=== PATIENT | female | born 1980 | race Caucasian/White ===

== ENCOUNTER 2023-02-28 15:53 | Outpatient (OUT) | payer OTHER, SELFPAY ==
[2023-02-28 16:18] LABS: Basophils Percent Auto 0.6 % (0.2-2.0); Eosinophils Absolute Auto 0.1 10^3/uL (0.0-0.7); Hematocrit 41.6 % (36.0-48.0); Hemoglobin 13.7 g/dL (12.0-16.0); Immature Granulocytes Abs Auto 0.01 10^3/uL (0.00-0.03); Immature Granulocytes Pct Auto 0.1 % (0.0-0.5); Lymphocytes Absolute Auto 1.7 10^3/uL (1.2-3.8); Lymphocytes Percent Auto 24.8 % (20.5-60.0); Mean Corpuscular HGB Conc 32.9 g/dL (29.9-35.2); Mean Corpuscular Hemoglobin 34.5 pg (26.7-34.0); Mean Corpuscular Volume 104.8 fL (81.0-99.0); Mean Platelet Volume 9.4 fL (9.5-13.5); Monocytes Absolute Auto 0.5 10^3/uL (0.3-0.8); Monocytes Percent Auto 6.9 % (1.7-12.0); Neutrophils Absolute Auto 4.5 10^3/uL (1.4-6.5); Neutrophils Percent Auto 66.6 % (43.0-75.0); Platelet Count 288 10^3/uL (150-450); Red Blood Count 3.97 10^6/uL (4.20-5.40); Red Cell Distribution Width 12.9 % (11.0-15.0); White Blood Count 6.8 10^3/uL (4.0-11.0)
[2023-02-28 16:42] LABS: INR 1.01; Partial Thromboplastin Time 25.5 sec (22.3-36.2); Prothrombin Time 10.7 sec (9.0-11.6)
[2023-02-28 17:10] LABS: Estimated Average Glucose 85 mg/dL; Glycohemoglobin A1C 4.6 % (4.5-6.2)
[2023-02-28 17:17] LABS: Free T4 0.96 ng/dL (0.76-1.46)
[2023-02-28 17:18] LABS: HCG Quantitative <1 mIU/mL; Thyroid Stimulating Hormone 1.753 uIU/mL (0.358-3.740)
== END 2023-02-28 15:54 | disposition home or self-care (01) ==
PROVIDERS: Visit Provider Obstetrics & Gynecology
DX: N92.6 Irregular menstruation, unspecified (principal); R10.2 Pelvic and perineal pain
CPT/HCPCS: 36415; 83036; 84439; 84443; 84702; 85025; 85610; 85730

== ENCOUNTER 2023-03-19 14:26 | Outpatient (OUT) | payer OTHER, SELFPAY ==
--- NOTE | 2023-03-19 14:28 | US_ITS ---
The [address] [address] Patient Name: LUCIE BLUM MRN: [id number] date: 1980 Sex: F Assigned Patient Location: US Current Patient Location: Accession/Order Number: [id number] Exam Date: 03/19/2023 14:28 Report Date: 03/20/2023 00:54 At the request of: DEANDRE HOYT Procedure: US pelvis w/ transvaginal EXAMINATION: US pelvis w/ transvaginal HISTORY: IRREGULAR PERIODS, PELVIC PAIN COMPARISON: No relevant comparison available. TECHNIQUE: Transabdominal and/or transvaginal sonographic examination was performed as indicated by examination type. FINDINGS: UTERUS: Normal size and appearance. Uterus size: 9.7 x 4.2 x 5.6 cm ENDOMETRIUM: Thickened, but homogeneous. Endometrial thickness: 16 mm RIGHT OVARY: Normal size and appearance. Blood flow present within ovary on color Doppler. Ovary size: 1.; 0.6 x 1.9 cm LEFT OVARY: Not seen. CUL-DE-SAC: Unremarkable. No significant free fluid. BLADDER: Unremarkable. OTHER: None. US/US pelvis w/ transvaginal IMPRESSION: 1. Abnormal thickening of the endometrium without appreciable mass; endometrial hyperplasia? 2. Left ovary was not seen. No suspicious left adnexal findings. Electronically authenticated by: JORGE TAYLOR Date: 03/20/2023 00:54
== END 2023-03-19 14:27 | disposition home or self-care (01) ==
LOC: US 14:26
PROVIDERS: Visit Provider Obstetrics & Gynecology
DX: N92.6 Irregular menstruation, unspecified (principal); R10.2 Pelvic and perineal pain
CPT/HCPCS: 76830; 76856

== ENCOUNTER 2023-04-01 14:12 | Outpatient (REF) | payer OTHER, SELFPAY ==
--- OUTSIDE RECORDS SUMMARY | 2023-05-13 13:51 | XMS_ITS | CCD ---
Author Name Unknown Address [address] [place] [address] Organization [facility] Care Team Providers Care [employer] Set Up Operator Name Role Phone DR RONNIE VOSS Primary [...] POTENTIAL PATHOGENS SEEN. Normal [facility] Comment on above: Performed By: #### U RCX #### [facility] [address] [address] [address] Dg Sawant ER URINE PROFILEon 2 Bilirubin Ql (U) Negative Normal NEGATIVE [facility] Comment on above: Performed By: #### E RUR, PREGU, UMICRO #### [facility] [address] [place], [place] [address] Dr. Dg Sawant Clarity (U) CLEAR Normal CLEAR [facility] Comment on above: Performed By: #### E RUR, PREGU, UMICRO #### [facility] [address] [address] [address] Dg Sawant Color (U) LT. YELLOW Normal YELLOW [facility] Comment on above: Performed By: #### E RUR, PREGU, UMICRO #### [facility] [address] [address] [address] Dg MCMILLAN A micrscopic examination will be performed if indicated. Normal [facility] Comment on above: Performed By: #### E RUR, PREGU, UMICRO #### [facility] [address] [address] [address] Dg Sawant Glucose Ql (U) Negative Normal NEGATIVE [facility] Comment on above: Performed By: #### E RUR, PREGU, UMICRO #### [facility] [address] [address] [address] Dg Sawant Hemoglobin Ql (U) Negative Normal NEGATIVE [facility] Comment on above: Performed By: #### E RUR, PREGU, UMICRO #### [facility] [address] [address] [address] Dg Sawant Ketones Ql (U) Negative Normal NEGATIVE [facility] Comment on above: Performed By: #### E RUR, PREGU, UMICRO #### [facility] [address] [address] [address] Dg Sawant LEUKOCYTES TRACE Abnormal NEGATIVE [facility] Comment on above: Performed By: #### E RUR, PREGU, UMICRO #### [facility] [address] [address] [address] Dg Sawant Nitrite Ql (U) Negative Normal NEGATIVE [facility] Comment on above: Performed By: #### E RUR, PREGU, UMICRO #### [facility] [address] [address] [address] Dg Sawant pH (U) 6.0 [pH] Normal 5-9 [facility] Comment on above: Performed By: #### E RUR, PREGU, UMICRO #### [facility] [address] [address] [address] Dg Sawant SPEC GRAVITY 1.015 Normal 1.005-<=1.025 [facility] Comment on above: Performed By: #### E RUR, PREGU, UMICRO #### [facility] [address] [place] [address] Dr. Dg Sawant UA PROTEIN Negative Normal NEGATIVE/ TRACE [facility] Comment on above: Performed By: #### E RUR, PREGU, UMICRO #### [facility] [address] [place] [address] Dr. Dg Sawant UR MICRO IND INDICATED Normal [facility] Comment on above: Performed By: #### E RUR, PREGU, UMICRO #### [facility] [address] [place] [address] Dr. Dg Sawant Urobilinogen Qn (U) 0.2 {Susana'U}/dL Normal 0.2 - 1. 0 [facility] Comment on above: Performed By: #### E RUR, PREGU, UMICRO #### [facility] [address] [place] [address] Dr. Dg Sawant URon 09-11-2021 , QUAL Negative Normal NEGATIVE [facility] Comment on above: Performed By: #### E RUR, PREGU, UMICRO #### [facility] [address] [place] [address] Dr. Dg Sawant URINE MICROSCOPIC ONLYon BACTERIA TRACE Abnormal NONE SEEN [facility] Comment on above: Performed By: #### E RUR, PREGU, UMICRO #### [facility] [address] [place] [address] Dr. Dg Sawant Bacteria identified Cx Nom (U) INDICATED Normal [facility] Comment on above: Performed By: #### E RUR, PREGU, UMICRO #### [facility] [address] [place] [address] Dr. Dg Sawant CAST NONE SEEN Normal NONE SEEN [facility] Comment on above: Performed By: #### E RUR, PREGU, UMICRO #### [facility] [address] [address] [address] Dg Sawant Crystals LM Nom (Urine sed) NONE SEEN Normal NONE SEEN [facility] Comment on above: Performed By: #### E RUR, PREGU, UMICRO #### [facility] [address] [address] [address] Dg Sawant Epithelial cells LM Ql (Urine sed) RARE Normal NONE SEEN /RARE [facility] Comment on above: Performed By: #### E RUR, PREGU, UMICRO #### [facility] [address] [address] [address] Dg Sawant MUCOUS SMALL Abnormal NONE SEEN [facility] Comment on above: Performed By: #### E RUR, PREGU, UMICRO #### [facility] [address] [address] [address] Dg Sawant RBC 0-2 Normal 0-2 [facility] Comment on above: Performed By: #### E RUR, PREGU, UMICRO #### [facility] [address] [address] [address] Dg Sawant WBC 0-2 Abnormal NONE SEEN [facility] Comment on above: Performed By: #### E RUR, PREGU, UMICRO #### [facility] [address] [address] [address] Dg Sawant Encounters Encounter Date Encounter Type Care Provider Facility Start: 09-11-2021 End: 09-11-[address] DOCTOR VOSS Facility: Payers Date Payer Category Payer Unknown [id number] 1960 Unknown [id number] Summary Purpose Family History No Family History Records Found Advance Directives No Advanced Directives Records Found Additional Source Comments INFORMATION SOURCE (unrecogn ized section and content) DATE CREATED AUTHOR 09/13/2021 [facility] FOR RECORDS PERTAINING TO PATIENTS WHO [...] BE BASED ON THE PRIMARY CLINICAL RECORDS. [facility] [email or web address] [facility]. provides no warranty or guarantee of the accuracy or completeness of information in this document.
== END 2023-04-01 14:13 ==
LOC: LAB 14:12
PROVIDERS: Visit Provider Obstetrics & Gynecology
DX: N92.6 Irregular menstruation, unspecified (principal)
CPT/HCPCS: 88305

== ENCOUNTER 2023-04-11 10:01 | Outpatient (OUT) | payer OTHER, SELFPAY ==
--- OUTSIDE RECORDS SUMMARY | 2023-04-11 10:05 | XMS_ITS | CCD ---
Author Name Unknown Address [address] [place] [address] Organization [facility] Care Team Providers Care College Sports Assistant Name Role Phone DR RONNIE VOSS Primary Care Unavailable WAI WHEELER Attending Unavailable WAI WHEELER Consulting Unavailable WAI WHEELER Admitting Unavailable Problems Active Problems Problem Classification Problem Date Documented Da te Episodic/Chronic Genitourinary symptoms and ill-defined conditions (1 source) Personal history of urinary (tract) infections; Translations: [PERS HX URINARY TRACT INFECTIONS] Onset: 09-13-2021 Episodic Spondylosis; intervertebral disc disorders; other back problems (1 source) Muscle spasm of back; Translations: [MUSCLE SPASM OF BACK] Onset: 09-13-2021 Episodic Unclassified (3 sources) LOW BACK PAIN, UNSPECIFIED; Translations: [LOW BACK PAIN, UNSPECIFIED] Onset: 09-13-2021 Past or Other Problems Problem Classification Problem Date Documented Da te Episodic/Chronic Unclassified (1 source) LOW BACK PAIN, UNSPECIFIED; Translations: [LOW BACK PAIN, UNSPECIFIED] Onset: 09-11-2021 Results Test Name Value Interpretation Reference Range Facil ity CULTURE URINEon 09-11-2021 CULTURE URINE Culture Observations: LIGHT GROWTH OF MIXED GENITAL JACQUELINE. NO POTENTIAL PATHOGENS SEEN. Normal The [facility] Comment on above: Performed By: #### U RCX #### [facility] [address] [address] [address] Dg Sawant ER URINE PROFILEon 2 Bilirubin Ql (U) Negative Normal NEGATIVE The [facility] Comment on above: Performed By: #### E RUR, PREGU, UMICRO #### [facility] [address] [place], [place] [address] Dr. Dg Sawant Clarity (U) CLEAR Normal CLEAR The [facility] Comment on above: Performed By: #### E RUR, PREGU, UMICRO #### [facility] [address] [address] [address] Dg Sawant Color (U) LT. YELLOW Normal YELLOW The [facility] Comment on above: Performed By: #### E RUR, PREGU, UMICRO #### [facility] [address] [address] [address] Dg MCMILLAN A micrscopic examination will be performed if indicated. Normal The [facility] Comment on above: Performed By: #### E RUR, PREGU, UMICRO #### [facility] [address] [address] [address] Dg Sawant Glucose Ql (U) Negative Normal NEGATIVE The [facility] Comment on above: Performed By: #### E RUR, PREGU, UMICRO #### [facility] [address] [address] [address] Dg Sawant Hemoglobin Ql (U) Negative Normal NEGATIVE [facility] Comment on above: Performed By: #### E RUR, PREGU, UMICRO #### [facility] [address] [address] [address] Dg Sawant Ketones Ql (U) Negative Normal NEGATIVE The [facility] Comment on above: Performed By: #### E RUR, PREGU, UMICRO #### [facility] [address] [address] [address] Dg Sawant LEUKOCYTES TRACE Abnormal NEGATIVE The [facility] Comment on above: Performed By: #### E RUR, PREGU, UMICRO #### [facility] [address] [address] [address] Dg Sawant Nitrite Ql (U) Negative Normal NEGATIVE [facility] Comment on above: Performed By: #### E RUR, PREGU, UMICRO #### [facility] [address] [address] [address] Dg Sawant pH (U) 6.0 [pH] Normal 5-9 The [facility] Comment on above: Performed By: #### E RUR, PREGU, UMICRO #### [facility] [address] [address] [address] Dg Sawant SPEC GRAVITY 1.015 Normal 1.005-<=1.025 The [facility] Comment on above: Performed By: #### E RUR, PREGU, UMICRO #### [facility] [address] [place] [address] Dr. Dg Sawant UA PROTEIN Negative Normal NEGATIVE/ TRACE The [facility] Comment on above: Performed By: #### E RUR, PREGU, UMICRO #### [facility] [address] [place] [address] Dr. Dg Sawant UR MICRO IND INDICATED Normal The [facility] Comment on above: Performed By: #### E RUR, PREGU, UMICRO #### [facility] [address] [place] [address] Dr. Dg Sawant Urobilinogen Qn (U) 0.2 {Susana'U}/dL Normal 0.2 - 1. 0 The [facility] Comment on above: Performed By: #### E RUR, PREGU, UMICRO #### [facility] [address] [place] [address] Dr. Dg Sawant URon 09-11-2021 , QUAL Negative Normal NEGATIVE The [facility] Comment on above: Performed By: #### E RUR, PREGU, UMICRO #### [facility] [address] [place] [address] Dr. Dg Sawant URINE MICROSCOPIC ONLYon BACTERIA TRACE Abnormal NONE SEEN The [facility] Comment on above: Performed By: #### E RUR, PREGU, UMICRO #### [facility] [address] [place] [address] Dr. Dg Sawant Bacteria identified Cx Nom (U) INDICATED Normal The [facility] Comment on above: Performed By: #### E RUR, PREGU, UMICRO #### [facility] [address] [place] [address] Dr. Dg Sawant CAST NONE SEEN Normal NONE SEEN The [facility] Comment on above: Performed By: #### E RUR, PREGU, UMICRO #### [facility] [address] [address] [address] Dg Sawant Crystals LM Nom (Urine sed) NONE SEEN Normal NONE SEEN The [facility] Comment on above: Performed By: #### E RUR, PREGU, UMICRO #### [facility] [address] [address] [address] Dg Sawant Epithelial cells LM Ql (Urine sed) RARE Normal NONE SEEN /RARE The [facility] Comment on above: Performed By: #### E RUR, PREGU, UMICRO #### [facility] [address] [address] [address] Dg Sawant MUCOUS SMALL Abnormal NONE SEEN The [facility] Comment on above: Performed By: #### E RUR, PREGU, UMICRO #### [facility] [address] [address] [address] Dg Sawant RBC 0-2 Normal 0-2 The [facility] Comment on above: Performed By: #### E RUR, PREGU, UMICRO #### [facility] [address] [address] [address] Dg Sawant WBC 0-2 Abnormal NONE SEEN The [facility] Comment on above: Performed By: #### E RUR, PREGU, UMICRO #### [facility] [address] [address] [address] Dg Sawant Encounters Encounter Date Encounter Type Care Provider Facility Start: 09-11-2021 End: 09-11-[address] DOCTOR VOSS Facility: Payers Date Payer Category Payer Unknown [id number] 1960 Unknown [id number] Summary Purpose Family History No Family History Records Found Advance Directives No Advanced Directives Records Found Additional Source Comments INFORMATION SOURCE (unrecogn ized section and content) DATE CREATED AUTHOR 09/13/2021 The [facility] FOR RECORDS PERTAINING TO PATIENTS WHO ARE OR HAVE BEEN ENROLLED IN A CHEMICAL DEPENDENCY/SUBSTANCEABUSE PROGRAM, SOME INFORMATION MAY BE OMITTED. This clinical summary was aggregated from multiple sources. Caution should be exercised in using it in the provision of clinical care. This summary normalizes information from multiple sources, and as a consequence, information in this document may materially change the coding, format and clinical context of patient data. In addition, data may be omitted in some cases. CLINICAL DECISIONS SHOULD BE BASED ON THE PRIMARY CLINICAL RECORDS. [facility] [employer] [facility]. provides no warranty or guarantee of the accuracy or completeness of information in this document.
--- NOTE | 2023-04-11 10:26 | ECG_ITS ---
The [facility] Test Date: 2023-04-11 Pat Name: LUCIE BLUM Department: Room: - Gender: Female Cancer Program Director: : 1980 Requested By: DEANDRE HOYT Order Number: [id number] Reading MD: KAMI COLE Measurements Intervals [place] Rate: 69 P: 25 [place]: 118 QRS: 41 QRSD: 90 T: 32 QT: 390 QTc: 419 Interpretive Statements SINUS RHYTHM WITH SHORT [place] INTERVAL No previous ECG available for comparison Electronically Signed On 04-14-2023 17:22:36 EST by KAMI COLE
--- NOTE | 2023-04-11 10:35 | P.GSHP_ITS ---
History of Present Illness History of Present Illness Chief complaint: desires sterilization, menorrhagia Narrative: Patient presents for preadmission testing. Please see HPI from Dr. Lyons dated 04/01/2023. Review of Systems ROS Narrative Please see ROS from Dr. Lyons dated 04/01/2023. [facility] Medical History (Updated 04/11/23 @ 10:20 by Ayleen Saldana NP) Arthritis ?M19.90 - Unspecified osteoarthritis, unspecified site (ICD-10) Panic attacks ?F41.0 - Panic disorder [episodic paroxysmal anxiety] (ICD-10) Depression ?F32.A - Depression, unspecified (ICD-10) Anxiety ?F41.9 - Anxiety disorder, unspecified (ICD-10) COVID-19 ?U07.1 - COVID-19 (ICD-10) Migraine ?G43.909 - Migraine, unspecified, not intractable, without status migrainosus (ICD-10) Vertigo ?R42 - Dizziness and giddiness (ICD-10) Kidney stones ?N20.0 - Calculus of kidney (ICD-10) Request for sterilization ?Z30.2 - Encounter for sterilization (ICD-10) Abnormal uterine bleeding ?N93.9 - Abnormal uterine and vaginal bleeding, unspecified (ICD-10) Pelvic pain ?R10.2 - Pelvic and perineal pain (ICD-10) Menorrhagia ?N92.0 - Excessive and frequent menstruation with regular cycle (ICD-10) Heartburn ?R12 - Heartburn (ICD-10) Angina at rest ?I20.89 - Other forms of angina pectoris (ICD-10) Surgical History (Updated 04/11/23 @ 10:20 by Ayleen Saldana NP) History of wisdom tooth extraction ?K08.409 - Partial loss of teeth, unspecified cause, unspecified class (ICD- 10) History of tubal ligation ?Z98.51 - Tubal ligation status (ICD-10) Family History (Updated 04/11/23 @ 10:20 by Ayleen Saldana NP) Other Family history of diabetes mellitus Family history of heart disease Family history of hypertension Family history of stroke Social History (Updated 04/11/23 @ 10:16 by Ayleen Saldana NP) Within the past year, how often did you have a drink containing alcohol: 4 or more times a week Within the past year, how many standard drinks containing alcohol did you have on a typical day: 1 or 2 Total score: 0 Score interpretation: A score less than 3 is consistent with normal alcohol consumption. 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 Highest level of school completed/degree received: Bachelor's degree Meds Home Medications and Allergies Home Medications Medication Instructions Recorded Confirmed Type meclizine 25 mg tablet 25 mg PO TID PRN dizziness 04/11/23 04/11/23 History nitroglycerin 0.4 mg sublingual 0.4 mg buccal Q5M PRN chest pain 04/11/23 04/11/23 History tablet Allergies Allergy/AdvReac Type Severity Reaction Status Date / Time codeine Allergy Vomiting Verified 04/11/23 10:14 Exam Narrative Exam Narrative: Constitutional: Awake, alert, comfortable, well-appearing, nontoxic, interactive, vital signs as charted Head: Normocephalic, atraumatic Neck: Supple, normal appearance, normal range of motion, no meningeal signs, no lymphadenopathy Respiratory: No respiratory distress, breath sounds clear Cardiovascular: Regular rate and rhythm, strong and regular heart tones Abdomen: Nontender, normal bowel sounds, soft, no CVA tenderness Musculoskeletal: Normal gait, no swelling or edema Skin: No rashes or induration, no lesions, only visible skin inspected Neuro: No neurological deficits, normal sensation Psychiatric: Oriented ?3, normal affect Assessment and Plan Assessment and Plan (1) Request for sterilization: (2) Abnormal uterine bleeding: (3) Pelvic pain: (4) Menorrhagia: Plan Robot assisted bilateral laparoscopic salpingectomy, endometrial ablation Vanessa scheduled with Dr. Lyons 04/24/2023.
== END 2023-04-11 10:02 | disposition home or self-care (01) ==
LOC: PST 10:02
PROVIDERS: Visit Provider Obstetrics & Gynecology
DX: Z01.812 Encounter for preprocedural laboratory examination (principal); Z01.818 Encounter for other preprocedural examination; N92.0 Excessive and frequent menstruation with regular cycle; N93.9 Abnormal uterine and vaginal bleeding, unspecified; R10.2 Pelvic and perineal pain
CPT/HCPCS: 93005; G0463

== ENCOUNTER 2023-04-24 06:05 | Day surgery (SDC) | payer OTHER, SELFPAY ==
[2023-04-11 10:31] VITALS: BP 117/83; PULSE 84; RESP 14; TEMP 36.3; O2SAT 97; BMI 23.1
[2023-04-24] VITALS (10 sets, daily range): BP systolic 105–122; BP diastolic 56–75; PULSE 63–78; RESP 12–21; TEMP 36.1–36.2; O2SAT 96–100; BMI 23.0
--- OUTSIDE RECORDS SUMMARY | 2023-04-24 06:09 | XMS_ITS | CCD ---
Author Name Unknown Address [address] [place] [address] Organization [facility] Care Team Providers Care Painter Barrel Name Role Phone DR RONNIE VOSS Primary [...] JACQUELINE. NO POTENTIAL PATHOGENS SEEN. Normal The [facility] Comment on above: Performed By: #### U RCX #### [facility] [address] [address] [address] Dg Sawant ER URINE PROFILEon 2 Bilirubin Ql (U) Negative Normal NEGATIVE The [facility] Comment on above: Performed By: #### E RUR, PREGU, UMICRO #### [facility] [address] [place], [place] [address] Dr. Dg Sawant Clarity (U) CLEAR Normal CLEAR [facility] Comment on above: Performed By: #### E RUR, PREGU, UMICRO #### [facility] [address] [address] [address] Dg Sawant Color (U) LT. YELLOW Normal YELLOW The [facility] Comment on above: Performed By: #### E RUR, PREGU, UMICRO #### [facility] [address] [address] [address] Dg MCMILLAN A micrscopic examination will be performed if indicated. Normal The [facility] Comment on above: Performed By: #### E RUR, PREGU, UMICRO #### [facility] [address] [address] [address] Dg Sawant Glucose Ql (U) Negative Normal NEGATIVE The [facility] Comment on above: Performed By: #### E RUR, PREGU, UMICRO #### [facility] [address] [address] [address] Dg Sawant Hemoglobin Ql (U) Negative Normal NEGATIVE [facility] Comment on above: Performed By: #### E RUR, PREGU, UMICRO #### [facility] [address] [address] [address] Dg Sawant Ketones Ql (U) Negative Normal NEGATIVE The [facility] Comment on above: Performed By: #### E RUR, PREGU, UMICRO #### [facility] [address] [address] [address] Dg Sawant LEUKOCYTES TRACE Abnormal NEGATIVE The [facility] Comment on above: Performed By: #### E RUR, PREGU, UMICRO #### [facility] [address] [address] [address] Dg Sawant Nitrite Ql (U) Negative Normal NEGATIVE [facility] Comment on above: Performed By: #### E RUR, PREGU, UMICRO #### [facility] [address] [address] [address] Dg Sawant pH (U) 6.0 [pH] Normal 5-9 [facility] Comment on above: Performed By: #### E RUR, PREGU, UMICRO #### [facility] [address] [address] [address] Dg Sawant SPEC GRAVITY 1.015 Normal 1.005-<=1.025 The [facility] Comment on above: Performed By: #### E RUR, PREGU, UMICRO #### [facility] [address] [place] [address] Dr. Dg Sawant UA PROTEIN Negative Normal NEGATIVE/ TRACE The [facility] Comment on above: Performed By: #### E RUR, PREGU, UMICRO #### [facility] [address] [place] [address] Dr. Dg Sawant UR MICRO IND INDICATED Normal [facility] Comment on above: Performed By: #### E RUR, PREGU, UMICRO #### [facility] [address] [place] [address] Dr. Dg Sawant Urobilinogen Qn (U) 0.2 {Susana'U}/dL Normal 0.2 - 1. 0 The [facility] Comment on above: Performed By: #### E RUR, PREGU, UMICRO #### [facility] [address] [place] [address] Dr. Dg Sawant URon 09-11-2021 , QUAL Negative Normal NEGATIVE The [facility] Comment on above: Performed By: #### E RUR, PREGU, UMICRO #### [facility] [address] [place] [address] Dr. Dg Sawant URINE MICROSCOPIC ONLYon BACTERIA TRACE Abnormal NONE SEEN The [facility] Comment on above: Performed By: #### E RUR, PREGU, UMICRO #### [facility] [address] [place] [address] Dr. Dg Sawant Bacteria identified Cx Nom (U) INDICATED Normal The [facility] Comment on above: Performed By: #### E RUR, PREGU, UMICRO #### [facility] [address] [place] [address] Dr. Dg Sawant CAST NONE SEEN Normal NONE SEEN The [facility] Comment on above: Performed By: #### E RUR, PREGU, UMICRO #### [facility] [address] [address] [address] Dg Sawant Crystals LM Nom (Urine sed) NONE SEEN Normal NONE SEEN The [facility] Comment on above: Performed By: #### E RUR, PREGU, UMICRO #### [facility] [address] [address] [address] Dg Sawant Epithelial cells LM Ql (Urine sed) RARE Normal NONE SEEN /RARE The [facility] Comment on above: Performed By: #### E RUR, PREGU, UMICRO #### [facility] [address] [address] [address] Dg Sawant MUCOUS SMALL Abnormal NONE SEEN The [facility] Comment on above: Performed By: #### E RUR, PREGU, UMICRO #### [facility] [address] [address] [address] Dg Sawant RBC 0-2 Normal 0-2 The [facility] Comment on above: Performed By: #### E RUR, PREGU, UMICRO #### [facility] [address] [address] [address] Dg Sawant WBC 0-2 Abnormal NONE SEEN The [facility] Comment on above: Performed By: #### E RUR, PREGU, UMICRO #### [facility] [address] [address] [address] Dg Sawant Encounters Encounter Date Encounter Type Care Provider Facility Start: 09-11-2021 End: 09-11-[address] DOCTOR VOSS Facility: Payers Date Payer Category Payer Unknown [id number] 1960 Unknown [id number] Summary Purpose Family History No Family History Records Found Advance Directives No Advanced Directives Records Found Additional Source Comments INFORMATION SOURCE (unrecogn ized section and content) DATE CREATED AUTHOR 09/13/2021 The [facility] FOR RECORDS PERTAINING TO PATIENTS WHO ARE [...] BE BASED ON THE PRIMARY CLINICAL RECORDS. [facility] [employer] [facility]. provides no warranty or guarantee of the accuracy or completeness of information in this document.
[2023-04-24 06:17] LABS: Basophils Absolute Auto 0.1 10^3/uL (0.0-0.1); Basophils Percent Auto 0.7 % (0.2-2.0); Eosinophils Absolute Auto 0.1 10^3/uL (0.0-0.7); Eosinophils Percent Auto 0.9 % (0.9-7.0); Hematocrit 43.6 % (36.0-48.0); Hemoglobin 14.6 g/dL (12.0-16.0); Immature Granulocytes Abs Auto 0.03 10^3/uL (0.00-0.03); Immature Granulocytes Pct Auto 0.4 % (0.0-0.5); Lymphocytes Absolute Auto 2.2 10^3/uL (1.2-3.8); Lymphocytes Percent Auto 31.2 % (20.5-60.0); Mean Corpuscular HGB Conc 33.5 g/dL (29.9-35.2); Mean Corpuscular Hemoglobin 34.5 pg (26.7-34.0); Mean Corpuscular Volume 103.1 fL (81.0-99.0); Mean Platelet Volume 9.6 fL (9.5-13.5); Monocytes Absolute Auto 0.6 10^3/uL (0.3-0.8); Monocytes Percent Auto 8.3 % (1.7-12.0); Neutrophils Absolute Auto 4.1 10^3/uL (1.4-6.5); Neutrophils Percent Auto 58.5 % (43.0-75.0); Platelet Count 293 10^3/uL (150-450); Red Blood Count 4.23 10^6/uL (4.20-5.40); Red Cell Distribution Width 12.9 % (11.0-15.0)
[2023-04-24 06:41] LABS: HCG Quantitative <1 mIU/mL
[2023-04-24] MEDS: LACTATED RINGER'S SOLUTION 1,000 ML 50 ML IV (06:42)
--- NOTE | 2023-04-24 08:48 | P.ON_ITS ---
Brief Operative Note Date of procedure: 04/24/23 Pre-op diagnosis: aub, pelvic pain Post-op diagnosis: same as pre-op Procedure: Brief Operative Note Date of procedure: Pre-op diagnosis: Post-op diagnosis: Procedure: NAME OF PROCEDURE: robotic assisted bilateral laparoscopic salpingectomy, mineva endometrial ablation with hysteroscopy, rt ovarian cystectomy The patient was taken back to the OR where she was prepped and draped in the normal sterile fashion after being placed in the dorsal lithotomy position, after being placed under general anesthesia without difficulty.? A weighted speculum was placed into the vagina. The anterior lip was grasped with a single tooth tenaculum. The patient was then sounded to approximated 8cm. The patient?s cervix was gently dilated using hegardilators. The hysteroscope was passed t hrough the cervix into the uterus where both ostia were seen. No gross evidence of polyps, fibroids or malignancy. The cervical length was noted to be 4 cm. The total cavity length is 4cm.? The Vanessa ablation apparatus was set to approximately 4cm in length. This was placed through the cervix and into the uterus. After the seal was tested, at that time the total ablation of 120 seconds was performed with the Vanessa withoutdifficulty. All instruments were removed from the vagina. Excellent hemostasis noted.? A wet sponge stick was placed into the patient's vagina. Attention was then turned to the patient's abdomen, where a scalpel was used to make a small infraumbilical incision. The S retractors were then used to dissect the underlying layers until the fascia could be seen. The fascia was then grasped with Ann Marie clamps and tented up. A knife was then used to make a small incision to the fascia. The muscle was identified, at that time two sutures of #0 Vicryl on a GI needle was then used and placed through the fascia. the peritoneum was then identified and entered bluntly. The 10-4 Eben was then placed into the patient's abdomen. This was confirmed with direct visualization of the bowel, using the laparoscope. The patient's abdomen was then insufflated using approximately 4 liters of CO2 gas. Survey of the patient's abdomen demonstrated ovaries were normal in appearance as well as both tubes and uterus. A second and third rt and lt lateral robotic ports which were 8 mm in size, was then placed after the skin incision was made under direct visualization . the robotic arms were engaged. The patient's tube on the patient's right side was identified and tented up using a grasper, the ligasure apparatus was then used to come across the mesosalpingx from the fimbriated end to the insertion site at the uterus, the tube was then amputated and removed in its entirety. This was done on the contralateral side. The tubes were the removed from the patients abdomen.please note rt ovarian cystectomy was performed using the vessel sealer, Excellent hemostasis was noted. The lateral ports were then moved under direct visualization with excellent hemostasis. All instruments were removed from the patient's abdomen. The fascia was closed using the #0 Vicryl on GI needle. The skin was closed using 4-0 Vicryl subcuticularly. All instruments were removed from the patient's vagina as well. The patient was taken out of the dorsal lithotomy position and placed in the supine position and taken to recovery in stable condition. Sponge, lap and needle counts were correct x2. Anesthesia: JOSE Surgeon: Jose Cruz Lyons School Business Administrator: Nichol Naqvi Estimated blood loss (mL): 20 Pathology: other (tubes and rt cyst wall) Condition: stable Disposition: PACU Urinary Catheter Management Urinary Catheter Management Urethral: Cath placed during this visit: no
[2023-04-24] MEDS: HYDROCODONE/ACET 5-325 MG TABLET 1 TAB PO (09:17)
[2023-04-24] MEDS: LACTATED RINGER'S SOLUTION 1,000 ML 150 ML IV (09:50)
== END 2023-04-24 10:41 | disposition home or self-care (01) ==
PROVIDERS: Anesthesiology; Visit Provider Obstetrics & Gynecology
PROC: (CPT 840; principal; 2023-04-24 07:30)
PROC: (CPT 840; 2023-04-24 07:30)
DX: Z30.2 Encounter for sterilization (principal); N92.0 Excessive and frequent menstruation with regular cycle; N93.9 Abnormal uterine and vaginal bleeding, unspecified; R10.2 Pelvic and perineal pain; N83.11 Corpus luteum cyst of right ovary; M19.90 Unspecified osteoarthritis, unspecified site; F41.0 Panic disorder [episodic paroxysmal anxiety]; F32.A Depression, unspecified; F41.9 Anxiety disorder, unspecified; Z86.16 Personal history of COVID-19; Z87.442 Personal history of urinary calculi; R12 Heartburn; I20.89 Other forms of angina pectoris; Z87.891 Personal history of nicotine dependence; K21.9 Gastro-esophageal reflux disease without esophagitis
CPT/HCPCS: 58563; 58661; 58662; 36415; 84702; 85025; 88302; 88305; J0131; J0330; J1100; J1885; J2405; J2704; J2710; J3010

== ENCOUNTER 2023-11-20 09:44 | Outpatient (OUT) | payer OTHER, SELFPAY ==
--- OUTSIDE RECORDS SUMMARY | 2023-11-20 09:48 | XMS_ITS | CCD ---
Author Organization [facility] ion Partnership [facility] Care Team Providers Care Physical Medicine Physician Name Role Phone DR RONNIE VOSS Primary Care Unavailable WAI WHEELER Attending Unavailable WAI WHEELER Consulting Unavailable WAI WHEELER Admitting Unavailable SERVICES, [facility] Primary Care Unava JUSTIN Croft Attending Unavailable DEANDRE HOYT Attending Unavailable DEANDRE HOYT Attending Unavailable DEANDRE HOYT Attending Unavailable Allergies Allergy Classification Reported Allergen(s) Allergy Type Date of Onset Reaction(s) Facility (1 source) Acetaminophen / Codeine; Translations: [ACETAMINOPHEN-COD EINE] Drug Allergy 06-13-2021 [facility] Problems Active Problems Problem Classification Problem Date Documented Date Episodic/Chronic Genitourinary symptoms and ill-defined conditions (1 source) Personal history of urinary (tract) infections; Translations: [PERS HX URINARY TRACT INFECTIONS] Onset: 09-13-2021 Episodic Headache; including migraine (1 source) Headache; including migraine Onset: 05-20-2023 Other upper respiratory infections (1 source) Streptococcal pharyngitis; Translations: [Streptococcal pharyngitis] Onset: 05-20-2023 Episodic Spondylosis; intervertebral disc disorders; other back problems (1 source) Muscle spasm of back; Translations: [MUSCLE SPASM OF BACK] Onset: 09-13-2021 Episodic Unclassified (3 sources) LOW BACK PAIN, UNSPECIFIED; Translations: [LOW BACK PAIN, UNSPECIFIED] Onset: 09-13-2021 Unclassified (1 source) Cold Like Symptoms Onset: 05-20-2023 Past or Other Problems Problem Classification Problem Date Documented Da te Episodic/Chronic Unclassified (1 source) LOW BACK PAIN, UNSPECIFIED; Translations: [LOW BACK PAIN, UNSPECIFIED] Onset: 09-11-2021 Results Test Name Value Interpretation Reference Range Facil ity RAPID STREP SCR NURSINGon S. pyogenes Ag EIA Ql (Throat) Positive Abnormal NEG [facility] Comment on above: Performed By: #### 6 [id number] #### [facility] ([id number]) [address], [place] [address] SARS/FLU A+B/RSV by NAAT/Mol ecularon 05-20-2023 SARS/FLU A+B/RSV by NAAT/Molecular FLU A PCR Positive (qualifier value) FLU B PCR Negative (qualifier value) RSV by PCR Negative (qualifier value) SARS CoV 2 Not detected (qualifier value) NOTE The Xpert Xpress SARS-CoV-2/Flu/RSV Plus test is a rapid, multiplexed real-time RT-PCR test intended for the simultaneous qualitative detection and differentiation of SARS-CoV-2, influenza A, influenza B and respiratory syncytial virus (RSV) viral RNA from individuals suspected of respiratory viral infection consistent with COVID-19 by their healthcare provider. This test has not been validated in asymptomatic patients. The Xpert Xpress SARS-CoV-2 test is intended for use by qualified and trained operators who are performing tests using either [employer] DX or Bocada systems and is limited to laboratories that meet the CLIA requirements to perform high and moderate complexity tests. The Xpert Xpress SARS-CoV-2/Flu/RSV Plus is only for use under the Food and Drug Administration's Emergency Use Authorization. Results are for the simultaneous detection and differentiation of SARS-CoV-2, influenza A, influenza B and RSV nucleic acids in clinical specimens. SARS-CoV-2, influenza A, influenza B and RSV RNA identified by this test are generally detectable in upper respiratory samples during the acute phase of infection. Positive results are indicative of the presence of the identified virus, but do not rule out bacterial infection or co-infection with other pathogens not detected by this test. Clinical correlation with patient history and other diagnostic information is necessary to determine patient infection status. The agent detected may not be the definite cause of disease. Negative results do not preclude SARS-CoV-2, influenza A, influenza B and RSV infection and should not be used as the sole basis for treatment or other patient management decisions. Negative results must be combined with clinical observations, patient history and epidemiological information. An Invalid result may occur with specimen-associated inhibition unable to be resolved with specimen repeat. Fact Sheet for Healthcare Providers: https://www.fda.gov/m edia/348755/download Fact Sheet for Patients: https://www.fda.gov/m edia/924508/download Normal [facility] Comment on above: Performed By: #### C OVFLR #### [facility] ([id number]) [address] [place] [address], [place] [address] CULTURE URINEon 09-11-2021 CULTURE URINE Culture Observations : LIGHT GROWTH OF MIXED GENITAL JACQUELINE. NO POTENTIAL PATHOGENS SEEN. Normal [facility] Comment on above: Performed By: #### U RCX #### [facility] [address] [place] [address] Dr. Dg Sawant ER URINE PROFILEon 2 Bilirubin Ql (U) Negative Normal NEGATIVE [facility] Comment on above: Performed By: #### E RUR PREGU, UMICRO #### [facility] [address] [place] [address] Dr. Dg Sawant Clarity (U) CLEAR Normal CLEAR [facility] Comment on above: Performed By: #### E RUR PREGU UMICRO #### [facility] [address] [place] [address] Dr. Dg Sawant Color (U) LT. YELLOW Normal YELLOW [facility] Comment on above: Performed By: #### E RUR PREGU, UMICRO #### [facility] [address] [place] [address] Dr. Dg Sawant ERURenetta A micrscopic examination will be performed if indicated. Normal [facility] Comment on above: Performed By: #### E RUR PREGU, UMICRO #### [facility] [address] [place] [address] Dr. Dg Sawant Glucose Ql (U) Negative Normal NEGATIVE [facility] Comment on above: Performed By: #### E RUR PREGU, UMICRO #### [facility] [address] [place] [address] Dr. Dg Sawant Hemoglobin Ql (U) Negative Normal NEGATIVE [facility] Comment on above: Performed By: #### E RUR, PREGU, UMICRO #### [facility] [address] [place] [address] Dr. Dg Sawant Ketones Ql (U) Negative Normal NEGATIVE [facility] Comment on above: Performed By: #### E RUR, PREGU, UMICRO #### [facility] [address] [place] [address] Dr. Dg Sawant LEUKOCYTES TRACE Abnormal NEGATIVE [facility] Comment on above: Performed By: #### E RUR, PREGU, UMICRO #### [facility] [address] [address] [address] Dg Sawant Nitrite Ql (U) Negative Normal NEGATIVE [facility] Comment on above: Performed By: #### E RUR, PREGU, UMICRO #### [facility] [address] [place] [address] Dr. Dg Sawant pH (U) 6.0 [pH] Normal 5-9 [facility] Comment on above: Performed By: #### E RUR, PREGU, UMICRO #### [facility] [address] [place] [address] Dr. Dg Sawant SPEC GRAVITY 1.015 Normal 1.005-<=1.025 [facility] Comment on above: Performed By: #### E RUR, PREGU, UMICRO #### [facility] [address] [place] [address] Dr. Dg Sawant UA PROTEIN Negative Normal NEGATIVE/ TRACE [facility] Comment on above: Performed By: #### E RUR, PREGU, UMICRO #### [facility] [address] [address] [address] Dg Sawant UR MICRO IND INDICATED Normal [facility] Comment on above: Performed By: #### E RUR, PREGU, UMICRO #### [facility] [address] [place] [address] Dr. Dg Sawant Urobilinogen Qn (U) 0.2 {Susana'U}/dL Normal 0.2 - 1. 0 [facility] Comment on above: Performed By: #### E RUR, PREGU, UMICRO #### [facility] [address] [place] [address] Dr. Dg Sawant URon 09-11-2021 , QUAL Negative Normal NEGATIVE [facility] Comment on above: Performed By: #### E RUR, PREGU, UMICRO #### [facility] [address] [address] [address] Dg Sawant URINE MICROSCOPIC ONLYon BACTERIA TRACE Abnormal NONE SEEN The [facility] Comment on above: Performed By: #### E RUR, PREGU, UMICRO #### [facility] [address] [place] [address] Dr. Dg Sawant Bacteria identified Cx Nom (U) INDICATED Normal [facility] Comment on above: Performed By: #### E RUR, PREGU, UMICRO #### [facility] [address] [place] [address] Dr. Dg Sawant CAST NONE SEEN Normal NONE SEEN [facility] Comment on above: Performed By: #### Jacob RUR, PREGU, UMICRO #### [facility] [address] [place] [address] Dr. Dg Sawant Crystals LM Nom (Urine sed) NONE SEEN Normal NONE SEEN [facility] Comment on above: Performed By: #### E RUR, PREGU, UMICRO #### [facility] [address] [place] [address] Dr. Dg Sawant Epithelial cells LM Ql (Urine sed) RARE Normal NONE SEEN /RARE [facility] Comment on above: Performed By: #### E RUR, PREGU, UMICRO #### [facility] [address] [place] [address] Dr. Dg Sawant MUCOUS SMALL Abnormal NONE SEEN The [facility] Comment on above: Performed By: #### E RUR, PREGU, UMICRO #### [facility] [address] [place] [address] Dr. Dg Sawant RBC 0-2 Normal 0-2 [facility] Comment on above: Performed By: #### E RUR, PREGU, UMICRO #### [facility] [address] [place], [place] [address] Dr. Dg Sawant WBC 0-2 Abnormal NONE SEEN [facility] Comment on above: Performed By: #### E RUR, PREGU, UMICRO #### [facility] [address] [place], [place] [address] Dr. Dg Sawant Encounters Encounter Date Encounter Type Care Provider Facility Start: 10-29-2023 End: 10-29-2023 ambulatory DEANDRE EVELINA Not Available Start: 09-17-2023 End: 09-17-2023 ambulatory DEANDRE EVELINA Not Available Start: 05-20-2023 End: 05-20-2023 Emergency department patient visit [facility] Start: 05-13-2023 End: 05-13-2023 ambulatory JUSTIN JERO Not Available Start: 04-01-2023 End: 04-01-2023 ambulatory DEANDRE EVELINA Not Available Start: 09-11-2021 End: 09-11-[address] DOCTOR VOSS Facility: Payers Date Payer Category Payer Medicaid [id number] 2022 Unknown [id number] 1980 Unknown [id number] [id number] 1980 Unknown [id number] [id number] 1980 Unknown [id number] [id number] 1979 Unknown [id number] [id number] 1979 Unknown [id number] 2.16.84 [id number] 1979 Unknown [id number] 1960 Unknown [id number] Summary Purpose Family History No Family History Records FoundNo Family History Records FoundNo Family History Records Found Advance Directives No Advanced Directives Records FoundNo Advanced Directives Records FoundNo Advanced Directives Records Found Additional Source Comments INFORMATION SOURCE (unrecogn ized section and content) DATE CREATED AUTHOR 09/13/2021 [facility] DATE CREATED AUTHOR AUTHOR'S ORGANIZ ATION 05/26/2023 [facility] DATE CREATED AUTHOR AUTHOR'S ORGANIZ ATION 11/02/2023 [facility] FOR RECORDS PERTAINING TO PATIENTS WHO ARE [...] BE BASED ON THE PRIMARY CLINICAL RECORDS. [employer] [facility]. provides no warranty or guarantee of the accuracy or completeness of information in this document.
[2023-11-20 10:29] LABS: Basophils Percent Auto 0.4 % (0.2-2.0); Eosinophils Absolute Auto 0.1 10^3/uL (0.0-0.7); Eosinophils Percent Auto 0.8 % (0.9-7.0); Hematocrit 42.6 % (36.0-48.0); Hemoglobin 14.3 g/dL (12.0-16.0); Immature Granulocytes Abs Auto 0.04 10^3/uL (0.00-0.03); Immature Granulocytes Pct Auto 0.5 % (0.0-0.5); Lymphocytes Absolute Auto 1.5 10^3/uL (1.2-3.8); Lymphocytes Percent Auto 20.5 % (20.5-60.0); Mean Corpuscular HGB Conc 33.6 g/dL (29.9-35.2); Mean Corpuscular Hemoglobin 33.9 pg (26.7-34.0); Mean Corpuscular Volume 100.9 fL (81.0-99.0); Monocytes Absolute Auto 0.4 10^3/uL (0.3-0.8); Monocytes Percent Auto 5.5 % (1.7-12.0); Neutrophils Absolute Auto 5.4 10^3/uL (1.4-6.5); Neutrophils Percent Auto 72.3 % (43.0-75.0); Platelet Count 253 10^3/uL (150-450); Red Blood Count 4.22 10^6/uL (4.20-5.40); Red Cell Distribution Width 13.3 % (11.0-15.0); White Blood Count 7.4 10^3/uL (4.0-11.0)
--- NOTE | 2023-11-20 10:41 | PM.PRESUREVA ---
History of Present Illness History of Present Illness Chief complaint: menorrhagia Narrative: Patient presents for preadmission testing. The patient states she has a history of heavy painful periods, she had an endometrial ablation and salpingectomy here on April 24, 2023 and has continued to have heavy painful periods ever since. The patient states she has no other abdominal complaints and denies nausea, vomiting, constipation, diarrhea, abnormal vaginal discharge, fever, or any other complaints. Review of Systems ROS Narrative REVIEW OF SYSTEMS: Negative except as stated in HPI, ten or more systems reviewed. Constitutional: No fever, chills, weakness ENT: No sore throat or epistaxis Cardiovascular: No edema, chest pain, palpitations, or activity intolerance Respiratory: No shortness of breath, cough, or wheezing Musculoskeletal: No joint pain or swelling Gastrointestinal: No abdominal pain, constipation, diarrhea, or vomiting Genitourinary: No dysuria or hematuria Neurological: No numbness, tingling, weakness, or headache Psychiatric: No mood changes PFSH PFS Medical History (Updated 11/20/23 @ 10:04 by Ayleen Saldana NP) Dysmenorrhea ?N94.6 - Dysmenorrhea, unspecified (ICD-10) Dyspareunia Arthritis ?M19.90 - Unspecified osteoarthritis, unspecified site (ICD-10) Panic attacks ?F41.0 - Panic disorder [episodic paroxysmal anxiety] (ICD-10) Depression ?F32.A - Depression, unspecified (ICD-10) Anxiety ?F41.9 - Anxiety disorder, unspecified (ICD-10) COVID-19 ?U07.1 - COVID-19 (ICD-10) Migraine ?G43.909 - Migraine, unspecified, not intractable, without status migrainosus (ICD-10) Vertigo ?R42 - Dizziness and giddiness (ICD-10) Kidney stones ?N20.0 - Calculus of kidney (ICD-10) Request for sterilization ?Z30.2 - Encounter for sterilization (ICD-10) Abnormal uterine bleeding ?N93.9 - Abnormal uterine and vaginal bleeding, unspecified (ICD-10) Pelvic pain ?R10.2 - Pelvic and perineal pain (ICD-10) Menorrhagia ?N92.0 - Excessive and frequent menstruation with regular cycle (ICD-10) Heartburn ?R12 - Heartburn (ICD-10) Angina at rest ?I20.89 - Other forms of angina pectoris (ICD-10) Surgical History (Updated 11/20/23 @ 10:01 by Aylene Saldana NP) H/O bilateral salpingectomy (04/24/23) ?Z90.79 - Acquired absence of other genital organ(s) (ICD-10) History of wisdom tooth extraction ?K08.409 - Partial loss of teeth, unspecified cause, unspecified class (ICD-10) History of tubal ligation ?Z98.51 - Tubal ligation status (ICD-10) Family History (Updated 04/11/23 @ 10:20 by Ayleen Saldana NP) Other Family history of diabetes mellitus Family history of heart disease Family history of hypertension Family history of stroke Social History (Updated 04/11/23 @ 10:16 by Ayleen Saldana NP) Within the past year, how often did you have a drink containing alcohol: 4 or more times a week Within the past year, how many standard drinks containing alcohol did you have on a typical day: 1 or 2 Total score: 0 Score interpretation: A score less than 3 is consistent with normal alcohol consumption. 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 Highest level of school completed/degree received: Bachelor's degree Meds Home Medications and Allergies Home Medications ?Medication ?Instructions ?Recorded ?Confirmed ?Type nitroglycerin 0.4 mg sublingual 0.4 mg buccal Q5M PRN chest pain 04/11/23 11/20/23 History tablet ibuprofen 800 mg tablet 800 mg PO Q8H PRN pain 14 days #40 04/24/23 11/20/23 Rx tabs buspirone 5 mg tablet 5 mg PO BID 11/20/23 11/20/23 History cariprazine 3 mg capsule (Vraylar) 3 mg PO QPM 11/20/23 11/20/23 History escitalopram oxalate 10 mg tablet 15 mg PO DAILY 11/20/23 11/20/23 History hydroxyzine pamoate 50 mg capsule 50 mg PO QPM PRN sleep 11/20/23 11/20/23 History Allergies Allergy/AdvReac Type Severity Reaction Status Date / Time codeine AdvReac Vomiting Verified 11/20/23 10:10 Exam Narrative Exam Narrative: Constitutional: Awake, alert, comfortable, well-appearing, nontoxic, interactive, vital signs as charted Head: Normocephalic, atraumatic Neck: Supple, normal appearance, normal range of motion, no meningeal signs, no lymphadenopathy Respiratory: No respiratory distress, breath sounds clear Cardiovascular: Regular rate and rhythm, strong and regular heart tones Abdomen: Nontender, normal bowel sounds, soft, no CVA tenderness Musculoskeletal: Normal gait, no swelling or edema Skin: No rashes or induration, no lesions, only visible skin inspected Neuro: No neurological deficits, normal sensation Psychiatric: Oriented ?3, normal affect Assessment and Plan Assessment and Plan (1) Dysmenorrhea: (2) Dyspareunia: (3) Pelvic pain: (4) Menorrhagia: Plan Robot assisted laparoscopic hysterectomy, possible exploratory laparotomy, possible BSO, possible cystoscopy scheduled with Dr. Lyons December 04, 2023.
[2023-11-20 10:49] LABS: Alanine Aminotransferase 31 U/L (14-59); Albumin Globulin Ratio 1.1; Albumin Level 3.8 g/dL (3.4-5.0); Alkaline Phosphatase 75 U/L (46-116); Anion Gap 10.8; Aspartate Amino Transferase 22 U/L (15-37); BUN Creatinine Ratio 7.5; Bilirubin Direct 0.3 mg/dL (0.0-0.2); Bilirubin Total 1.5 mg/dL (0.2-1.0); Calcium 8.9 mg/dL (8.5-10.1); Carbon Dioxide 27.5 mmol/L (21.0-32.0); Chloride 102 mmol/L (98-107); Estimated GFR (African America >60 (>=60); Estimated GFR (Non-African Ame 56 (>=60); Globulin 3.5 g/dL; Glucose 91 mg/dL (74-106); INR 1.03; Partial Thromboplastin Time 25.9 sec (22.3-36.2); Potassium 4.3 mmol/L (3.5-5.1); Prothrombin Time 10.9 sec (9.0-11.6); Sodium 136 mmol/L (136-145); Total Protein 7.3 g/dL (6.4-8.2)
== END 2023-11-20 09:45 | disposition home or self-care (01) ==
LOC: PST 09:44
PROVIDERS: Visit Provider Obstetrics & Gynecology
DX: Z01.812 Encounter for preprocedural laboratory examination (principal); Z01.818 Encounter for other preprocedural examination; N92.0 Excessive and frequent menstruation with regular cycle; R10.2 Pelvic and perineal pain; N94.6 Dysmenorrhea, unspecified; N94.10 Unspecified dyspareunia
CPT/HCPCS: 36415; 80048; 80076; 85025; 85610; 85730; G0463

== ENCOUNTER 2023-12-02 16:31 | Outpatient (OUT) | payer OTHER, SELFPAY ==
--- OUTSIDE RECORDS SUMMARY | 2023-12-02 16:43 | XMS_ITS | CCD ---
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 Name Role Phone DR RONNIE VOSS Primary Care Unavailable WAI WHEELER Attending Unavailable WAI WHEELER Consulting Unavailable WAI WHEELER Admitting Unavailable SERVICES, [facility] Primary Care Unava JUSTIN Croft Attending Unavailable [...] Ag EIA Ql (Throat) Positive Abnormal NEG [facility] Comment on above: Performed By: #### 6 556-5 #### [facility] ([id number]) [address] [facility], [place] [address] SARS/FLU A+B/RSV by NAAT/Mol ecularon 05-20-2023 SARS/FLU [...] operators who are performing tests using either GeneRoboteX DX or Sanswire systems and is limited to laboratories that [...] repeat. Fact Sheet for Healthcare Providers: https://www.fda.gov/m edia/884846/download Fact Sheet for Patients: https://www.fda.gov/m edia/776144/download Normal [facility] Comment on above: Performed By: #### C OVFLR #### [facility] ([id number]) [address] [place] [address], [place] [address] CULTURE URINEon 09-11-2021 CULTURE URINE Culture Observations : LIGHT GROWTH OF MIXED GENITAL JACQUELINE. NO POTENTIAL PATHOGENS SEEN. Normal [facility] Comment on above: Performed By: #### U RCX #### [facility] [address] [place] [address] Dr. Dg Sawant ER URINE PROFILEon 2 Bilirubin Ql (U) Negative Normal NEGATIVE [facility] Comment on above: Performed By: #### E RUR PREGU, UMICRO #### [facility] [address] [place] [address] Dr. Dg Sawant Clarity (U) CLEAR Normal CLEAR [facility] Comment on above: Performed By: #### E RUR PREGU UMICRO #### [facility] [address] [place] [address] Dr. Dg Sawant Color (U) LT. YELLOW Normal YELLOW [facility] Comment on above: Performed By: #### E RUR PREGU, UMICRO #### [facility] [address] [place] [address] Dr. Dg Sawant ERURenetta A micrscopic examination will be performed if indicated. Normal [facility] Comment on above: Performed By: #### E RUR PREGU, UMICRO #### [facility] [address] [place] [address] Dr. Dg Sawant Glucose Ql (U) Negative Normal NEGATIVE [facility] Comment on above: Performed By: #### E RUR PREGU, UMICRO #### [facility] [address] [place] [address] Dr. Dg Sawant Hemoglobin Ql (U) Negative Normal NEGATIVE [facility] Comment on above: Performed By: #### E RUR, PREGU, UMICRO #### [facility] [address] [place] [address] Dr. Dg Sawant Ketones Ql (U) Negative Normal NEGATIVE [facility] Comment on above: Performed By: #### E RUR, PREGU, UMICRO #### [facility] [address] [place] [address] Dr. Dg Sawant LEUKOCYTES TRACE Abnormal NEGATIVE [facility] Comment on above: Performed By: #### E RUR, PREGU, UMICRO #### [facility] [address] [address] [address] Dg Sawant Nitrite Ql (U) Negative Normal NEGATIVE [facility] Comment on above: Performed By: #### E RUR, PREGU, UMICRO #### [facility] [address] [place] [address] Dr. Dg Sawant pH (U) 6.0 [pH] Normal 5-9 [facility] Comment on above: Performed By: #### E RUR, PREGU, UMICRO #### [facility] [address] [place] [address] Dr. Dg Sawant SPEC GRAVITY 1.015 Normal 1.005-<=1.025 [facility] Comment on above: Performed By: #### E RUR, PREGU, UMICRO #### [facility] [address] [place] [address] Dr. Dg Sawant UA PROTEIN Negative Normal NEGATIVE/ TRACE [facility] Comment on above: Performed By: #### E RUR, PREGU, UMICRO #### [facility] [address] [address] [address] Dg Sawant UR MICRO IND INDICATED Normal [facility] Comment on above: Performed By: #### E RUR, PREGU, UMICRO #### [facility] [address] [place] [address] Dr. Dg Sawant Urobilinogen Qn (U) 0.2 {Susana'U}/dL Normal 0.2 - 1. 0 [facility] Comment on above: Performed By: #### E RUR, PREGU, UMICRO #### [facility] [address] [place] [address] Dr. Dg Sawant URon 09-11-2021 , QUAL Negative Normal NEGATIVE [facility] Comment on above: Performed By: #### E RUR, PREGU, UMICRO #### [facility] [address] [address] [address] Dg Sawant URINE MICROSCOPIC ONLYon BACTERIA TRACE Abnormal NONE SEEN [facility] Comment on above: Performed By: #### E RUR, PREGU, UMICRO #### [facility] [address] [place] [address] Dr. Dg Sawant Bacteria identified Cx Nom (U) INDICATED Normal [facility] Comment on above: Performed By: #### E RUR, PREGU, UMICRO #### [facility] [address] [place] [address] Dr. Dg Sawant CAST NONE SEEN Normal NONE SEEN [facility] Comment on above: Performed By: #### Jacob RUR, PREGU, UMICRO #### [facility] [address] [place] [address] Dr. Dg Sawant Crystals LM Nom (Urine sed) NONE SEEN Normal NONE SEEN [facility] Comment on above: Performed By: #### E RUR, PREGU, UMICRO #### [facility] [address] [place] [address] Dr. Dg Sawant Epithelial cells LM Ql (Urine sed) RARE Normal NONE SEEN /RARE [facility] Comment on above: Performed By: #### E RUR, PREGU, UMICRO #### [facility] [address] [place] [address] Dr. Dg Sawant MUCOUS SMALL Abnormal NONE SEEN [facility] Comment on above: Performed By: #### E RUR, PREGU, UMICRO #### [facility] [address] [place] [address] Dr. Dg Sawant RBC 0-2 Normal 0-2 [facility] Comment on above: Performed By: #### E RUR, PREGU, UMICRO #### [facility] [address] [place], [place] [address] Dr. Dg Sawant WBC 0-2 Abnormal NONE SEEN [facility] Comment on above: Performed By: #### E RUR, PREGU, UMICRO #### [facility] [address] [place], [place] [address] Dr. Dg Sawnat Encounters Encounter Date Encounter Type Care Provider Facility Start: 10-29-2023 End: 10-29-2023 ambulatory DEANDRE EVELINA Not Available Start: 09-17-2023 End: 09-17-2023 ambulatory DEANDRE EVELINA Not Available Start: 05-20-2023 End: 05-20-2023 Emergency department patient visit [facility] Start: 05-13-2023 End: 05-13-2023 ambulatory JUSTIN JERO Not Available Start: 04-01-2023 End: 04-01-2023 ambulatory DEANDRE EVELINA Not Available Start: 09-11-2021 End: 09-11-[address] DOCTOR VOSS Facility: Payers Date Payer Category Payer Medicaid [id number] 2022 Unknown [id number] 1980 Unknown [id number] 2.16.84 [id number] 1979 Unknown [id number] 2.16.8 [id number] 1979 Unknown [id number] 2.16.84 [id number] 1979 Unknown [id number] 2.16.84 [id number] 1979 Unknown [id number] 2.16.84 [id number] 1979 Unknown [id number] 1959 Unknown [id number] Summary Purpose Family History No Family History Records FoundNo Family History Records FoundNo Family History Records Found Advance Directives No Advanced Directives Records FoundNo Advanced Directives Records FoundNo Advanced Directives Records Found Additional Source Comments INFORMATION SOURCE (unrecogn ized section and content) DATE CREATED AUTHOR 09/13/[address] [facility] DATE CREATED AUTHOR AUTHOR'S ORGANIZ ATION 05/26/2023 [facility] DATE CREATED AUTHOR AUTHOR'S ORGANIZ ATION 11/02/2023 [facility] FOR RECORDS PERTAINING TO PATIENTS WHO [...] BE BASED ON THE PRIMARY CLINICAL RECORDS. [employer] [facility]. provides no warranty or guarantee of the accuracy or completeness of information in this document.
== END 2023-12-02 16:32 | disposition home or self-care (01) ==
LOC: LAB 16:32
PROVIDERS: Visit Provider Obstetrics & Gynecology
DX: Z01.812 Encounter for preprocedural laboratory examination (principal); N92.0 Excessive and frequent menstruation with regular cycle; R10.2 Pelvic and perineal pain; N94.6 Dysmenorrhea, unspecified; N94.10 Unspecified dyspareunia
CPT/HCPCS: 36415; 86850; 86900; 86901

== ENCOUNTER 2023-12-04 11:01 | Day surgery (SDC) | payer OTHER, SELFPAY ==
[2023-11-20 10:28] VITALS: BP 119/83; PULSE 70; TEMP 36.2; O2SAT 99; BMI 26.0
[2023-12-04] VITALS (19 sets, daily range): BP systolic 95–130; BP diastolic 64–85; PULSE 70–92; TEMP 36.1–37.1; O2SAT 78–98; BMI 25.3
[2023-12-04 11:17] LABS: Basophils Percent Auto 0.6 % (0.2-2.0); Eosinophils Absolute Auto 0.1 10^3/uL (0.0-0.7); Eosinophils Percent Auto 0.8 % (0.9-7.0); Hematocrit 43.2 % (36.0-48.0); Hemoglobin 14.6 g/dL (12.0-16.0); Immature Granulocytes Abs Auto 0.03 10^3/uL (0.00-0.03); Immature Granulocytes Pct Auto 0.4 % (0.0-0.5); Lymphocytes Absolute Auto 1.8 10^3/uL (1.2-3.8); Lymphocytes Percent Auto 24.2 % (20.5-60.0); Mean Corpuscular HGB Conc 33.8 g/dL (29.9-35.2); Mean Corpuscular Hemoglobin 33.8 pg (26.7-34.0); Mean Platelet Volume 9.1 fL (9.5-13.5); Monocytes Absolute Auto 0.5 10^3/uL (0.3-0.8); Monocytes Percent Auto 6.9 % (1.7-12.0); Neutrophils Absolute Auto 4.8 10^3/uL (1.4-6.5); Neutrophils Percent Auto 67.1 % (43.0-75.0); Platelet Count 245 10^3/uL (150-450); Red Blood Count 4.32 10^6/uL (4.20-5.40); Red Cell Distribution Width 13.1 % (11.0-15.0); White Blood Count 7.2 10^3/uL (4.0-11.0)
--- OUTSIDE RECORDS SUMMARY | 2023-12-04 11:22 | XMS_ITS | CCD ---
Author Organization [facility] ion Partnership 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..] operators who are performing tests using either GeneImage Stream Medical DX or KeV[employer] systems and is limited to laboratories that [...] repeat. Fact Sheet for Healthcare Providers: https://www.fda.gov/m edia/519412/download Fact Sheet for Patients: https://www.fda.gov/m edia/968728/download Normal [facility] Comment on above: Performed By: #### C OVFLR #### [facility] ([id number]) [address] [place] [address], [place] [address] CULTURE URINEon 09-11-2021 CULTURE URINE Culture Observations : LIGHT GROWTH OF MIXED GENITAL JACQUELINE. NO POTENTIAL PATHOGENS SEEN. Normal [facility] Comment on above: Performed By: #### U RCX #### [facility] [address] [place] [address] Dr. Dg Sawant ER URINE PROFILEon 2 Bilirubin Ql (U) Negative Normal NEGATIVE [facility] Comment on above: Performed By: #### E RUR PREGU, UMICRO #### [facility] [address] [place] [address] Dr. Dg Sawant Clarity (U) CLEAR Normal CLEAR [facility] Comment on above: Performed By: #### E RUR PREGU UMICRO #### [facility] [address] [place] [address] Dr. Dg Sawant Color (U) LT. YELLOW Normal YELLOW [facility] Comment on above: Performed By: #### E RUR PREGU, UMICRO #### [facility] [address] [place] [address] Dr. Dg Sawant ERURenetta A micrscopic examination will be performed if indicated. Normal [facility] Comment on above: Performed By: #### E RUR PREGU, UMICRO #### [facility] [address] [place] [address] Dr. Dg Sawant Glucose Ql (U) Negative Normal NEGATIVE [facility] Comment on above: Performed By: #### E RUR PREGU, UMICRO #### [facility] [address] [place] [address] Dr. Dg Sawant Hemoglobin Ql (U) Negative Normal NEGATIVE [facility] Comment on above: Performed By: #### E RUR, PREGU, UMICRO #### [facility] [address] [place] [address] Dr. Dg Sawant Ketones Ql (U) Negative Normal NEGATIVE [facility] Comment on above: Performed By: #### E RUR, PREGU, UMICRO #### [facility] [address] [place] [address] Dr. Dg Sawant LEUKOCYTES TRACE Abnormal NEGATIVE [facility] Comment on above: Performed By: #### E RUR, PREGU, UMICRO #### [facility] [address] [address] [address] Dg Sawant Nitrite Ql (U) Negative Normal NEGATIVE [facility] Comment on above: Performed By: #### E RUR, PREGU, UMICRO #### [facility] [address] [place] [address] Dr. Dg Sawant pH (U) 6.0 [pH] Normal 5-9 [facility] Comment on above: Performed By: #### E RUR, PREGU, UMICRO #### [facility] [address] [place] [address] Dr. Dg Sawant SPEC GRAVITY 1.015 Normal 1.005-<=1.025 [facility] Comment on above: Performed By: #### E RUR, PREGU, UMICRO #### [facility] [address] [place] [address] Dr. Dg Sawant UA PROTEIN Negative Normal NEGATIVE/ TRACE [facility] Comment on above: Performed By: #### E RUR, PREGU, UMICRO #### [facility] [address] [address] [address] Dg Sawant UR MICRO IND INDICATED Normal [facility] Comment on above: Performed By: #### E RUR, PREGU, UMICRO #### [facility] [address] [place] [address] Dr. Dg Sawant Urobilinogen Qn (U) 0.2 {Susana'U}/dL Normal 0.2 - 1. 0 [facility] Comment on above: Performed By: #### E RUR, PREGU, UMICRO #### [facility] [address] [place] [address] Dr. Dg Sawant URon 09-11-2021 , QUAL Negative Normal NEGATIVE [facility] Comment on above: Performed By: #### E RUR, PREGU, UMICRO #### [facility] [address] [address] [address] Dg Sawant URINE MICROSCOPIC ONLYon BACTERIA TRACE Abnormal NONE SEEN [facility] Comment on above: Performed By: #### E RUR, PREGU, UMICRO #### [facility] [address] [place] [address] Dr. Dg Sawant Bacteria identified Cx Nom (U) INDICATED Normal [facility] Comment on above: Performed By: #### E RUR, PREGU, UMICRO #### [facility] [address] [place] [address] Dr. Dg Sawant CAST NONE SEEN Normal NONE SEEN [facility] Comment on above: Performed By: #### Jacob RUR, PREGU, UMICRO #### [facility] [address] [place] [address] Dr. Dg Sawant Crystals LM Nom (Urine sed) NONE SEEN Normal NONE SEEN [facility] Comment on above: Performed By: #### E RUR, PREGU, UMICRO #### [facility] [address] [place] [address] Dr. Dg Sawant Epithelial cells LM Ql (Urine sed) RARE Normal NONE SEEN /RARE [facility] Comment on above: Performed By: #### E RUR, PREGU, UMICRO #### [facility] [address] [place] [address] Dr. Dg Sawant MUCOUS SMALL Abnormal NONE SEEN [facility] Comment on above: Performed By: #### E RUR, PREGU, UMICRO #### [facility] [address] [place] [address] Dr. Dg Sawant RBC 0-2 Normal 0-2 [facility] Comment on above: Performed By: #### E RUR, PREGU, UMICRO #### [facility] [address] [place], [place] [address] Dr. Dg Sawant WBC 0-2 Abnormal NONE SEEN [facility] Comment on above: Performed By: #### E RUR, PREGU, UMICRO #### [facility] [address] [place], [place] [address] Dr. Dg Sawant Encounters Encounter Date Encounter Type Care Provider Facility Start: 10-29-2023 End: 10-29-2023 ambulatory DEANDRE EVELINA Not Available Start: 09-17-2023 End: 09-17-2023 ambulatory DEANDRE EVELINA Not Available Start: 05-20-2023 End: 05-20-2023 Emergency department patient visit [facility] Start: 05-13-2023 End: 05-13-2023 ambulatory JUSTIN JERO Not Available Start: 04-01-2023 End: 04-01-2023 ambulatory DEANDRE EVELINA Not Available Start: 09-11-2021 End: 09-11-[address] DOCTOR VOSS Facility: Payers Date Payer Category Payer Medicaid [id number] 2022 Unknown [id number] 1980 Unknown [id number] 2.16.84 [id number] 1979 Unknown [id number] 2.16.8 [id number] 1979 Unknown [id number] 2.16.84 [id number] 1979 Unknown [id number] 2.16.84 [id number] 1979 Unknown [id number] 2.16.84 [id number] 1979 Unknown [id number] 1959 Unknown [id number] Summary Purpose Family History No Family History Records FoundNo Family History Records FoundNo Family History Records Found Advance Directives No Advanced Directives Records FoundNo Advanced Directives Records FoundNo Advanced Directives Records Found Additional Source Comments INFORMATION SOURCE (unrecogn ized section and content) DATE CREATED AUTHOR 09/13/2021 [facility] DATE CREATED AUTHOR AUTHOR'S ORGANIZ ATION 05/26/2023 [facility] DATE CREATED AUTHOR AUTHOR'S ORGANIZ ATION 11/02/2023 [facility] FOR RECORDS PERTAINING TO PATIENTS WHO [...] BE BASED ON THE PRIMARY CLINICAL RECORDS. [employer] [facility]. provides no warranty or guarantee of the accuracy or completeness of information in this document.
[2023-12-04] MEDS: LACTATED RINGER'S SOLUTION 1,000 ML 50 ML IV (11:46)
[2023-12-04 11:56] LABS: HCG Quantitative <1 mIU/mL
[2023-12-04] MEDS: CEFAZOLIN SODIUM 1 GM/50 ML D5W PREMIX IV (12:26)
--- NOTE | 2023-12-04 15:08 | P.ON_ITS ---
Brief Operative Note Date of procedure: 12/04/23 Pre-op diagnosis general: aub, dyspareunia, enlarged uterus, dysmenorrhea Post-op diagnosis: same as pre-op Procedure: NAME OF PROCEDURE: ? Robotic assisted laparoscopic hysterectomy with cystoscopy PROCEDURE:? The patient was taken back to the operating room, where she was prepped and draped in the normal sterile fashion after being placed in the dorsal lithotomy position.? Patient?s anesthesia was found to be adequate.? Surgical timeout was performed using two patient identifiers.? SCDs were on and in place.? Two grams of Ancef were given prior to the surgery.? Sterile Smith catheter was inserted.? Standard size VCare was secured to the uterine cervix and the surgeon changed gloves.? Attention then was turned to the patient's abdomen, where a supraumbilical incision was then made.? Two S retractors were used to identify the patient?s fascia.? The fascia was then tented up using Ann Marie clamps and the patient?s fascia was incised sharply.? Patient?s abdomen was identified and entered bluntly.? The patient had the trocar placed and a pneumoperitoneum was obtained.? Approximately 4 liters of CO2 gas was used.? The camera was then placed through the trocar.? At this time, two robot trocars were placed in the patient?s left and right side, two hand widths from the midline, and this was placed under direct visualization.? Please note absent tubes were seen. The uterine ovarian ligament was identified and transected and ligated using the vessel sealer? The vessel sealer was carried down serially to the broad ligamen t, to the area of the bladder flap, which was then created anteriorly, and the uterine arteries were skeletonized and sealed using the vessel sealer.? The colpotomy was made using the monopolar cautery on cut, and this was carried circumferentially, posteriorly to anteriorly, until the uterus was amputated.? The specimen was then removed intact through the vagina, without difficulty.? The vagina was then closed using two running V-Loc in a non-lock fashion.? The robot was undocked.? The abdomen was desufflated.? The skin defects were closed using 4-0 Vicryl.? Please note, the fascia was closed using 0 Vicryl.? Sponge, lap and needle counts were correct x2.? Patient was taken to recovery room in stable condition.? The patient was awakened by Anesthesia first.? Patient tolerated procedure well.?? Anesthesia: SAJANA Surgeon: Jose Cruz Lyons Stretching Machine Tender Frame: Nichol Naqvi Estimated blood loss (mL): 50 Pathology: other (uterus, cervix) Condition: stable Disposition: PACU Urinary Catheter Management Urinary Catheter Management Urethral: Cath placed during this visit: no
[2023-12-04] MEDS: HYDROMORPHONE HCL 0.5 MG/0.5 ML SYRINGE IV (15:51)
[2023-12-04] MEDS: LACTATED RINGER'S SOLUTION 1,000 ML 125 ML IV (17:41)
[2023-12-04] MEDS: OXYCODONE HCL/ACETAMINOPHEN 5MG/325MG 2 TAB PO (17:42)
[2023-12-04] MEDS: CEFAZOLIN SODIUM/DEXTROSE,ISO 2 GM/50 ML PIGGYBACK IV ×2 (17:48→23:18)
[2023-12-04] MEDS: ONDANSETRON PF 4 MG/2 ML VIAL IV (20:04)
[2023-12-04 21:12] LABS: Basophils Percent Auto 0.2 % (0.2-2.0); Hematocrit 41.9 % (36.0-48.0); Immature Granulocytes Abs Auto 0.07 10^3/uL (0.00-0.03); Immature Granulocytes Pct Auto 0.6 % (0.0-0.5); Lymphocytes Absolute Auto 0.7 10^3/uL (1.2-3.8); Lymphocytes Percent Auto 5.4 % (20.5-60.0); Mean Corpuscular HGB Conc 33.4 g/dL (29.9-35.2); Mean Corpuscular Hemoglobin 33.5 pg (26.7-34.0); Mean Corpuscular Volume 100.2 fL (81.0-99.0); Mean Platelet Volume 9.5 fL (9.5-13.5); Monocytes Absolute Auto 0.2 10^3/uL (0.3-0.8); Monocytes Percent Auto 1.3 % (1.7-12.0); Neutrophils Absolute Auto 11.1 10^3/uL (1.4-6.5); Neutrophils Percent Auto 92.5 % (43.0-75.0); Platelet Count 224 10^3/uL (150-450); Red Blood Count 4.18 10^6/uL (4.20-5.40)
[2023-12-04] MEDS: KETOROLAC TROMETHAMINE 30 MG/ML VIAL IVP (22:00)
[2023-12-05] MEDS: OXYCODONE HCL/ACETAMINOPHEN 5MG/325MG 2 TAB PO ×2 (01:13→08:03)
[2023-12-05] MEDS: LACTATED RINGER'S SOLUTION 1,000 ML 125 ML IV (01:17)
[2023-12-05 06:00] VITALS: BP 109/73; PULSE 70; TEMP 36.9; O2SAT 94
[2023-12-05] MEDS: IBUPROFEN 400 MG TABLET 800 MG PO (06:09)
[2023-12-05 08:00] VITALS: BP 112/71; PULSE 67; TEMP 36.8; O2SAT 93
[2023-12-05] MEDS: MAGNESIUM HYDROXIDE 2,400 MG/10 ML ORAL.SUSP 2400 MG PO (08:03)
== END 2023-12-05 08:19 | disposition home or self-care (01) ==
LOC: SURGOUT 15:21 → MS 16:28
PROVIDERS: Visit Provider Obstetrics & Gynecology
PROC: (CPT 840; principal; 2023-12-04 12:30)
DX: N92.0 Excessive and frequent menstruation with regular cycle (principal); N94.10 Unspecified dyspareunia; R10.2 Pelvic and perineal pain; N94.6 Dysmenorrhea, unspecified; N93.9 Abnormal uterine and vaginal bleeding, unspecified; N72 Inflammatory disease of cervix uteri; Z98.51 Tubal ligation status; Z87.891 Personal history of nicotine dependence; Z86.16 Personal history of COVID-19
CPT/HCPCS: 58570; 36415; 84702; 85025; 88307; J0131; J0690; J1100; J1170; J1885; J2250; J2405; J2704; J3010

== ENCOUNTER 2024-02-06 12:28 | Emergency (ER) | payer OTHER, SELFPAY ==
[2024-02-06 12:36] VITALS: BP 114/93; PULSE 81; TEMP 36.8; O2SAT 99; BMI 21.9
--- OUTSIDE RECORDS SUMMARY | 2024-02-06 12:47 | XMS_ITS | CCD ---
Author Organization [facility] Care Team Providers Care Stock Fitter Name Role Phone DR RONNIE VOSS Primary Care Unavailable WAI WHEELER Attending Unavailable WAI WHEELER Consulting Unavailable WAI WHEELER Admitting Unavailable SERVICES, [facility] Primary Care Unava ilable DO Deandre Lyons Attending Provider Deandre Lyons Admitting Unavailable Deandre Lyons Attending Unavailable ROXIE NOGUEIRA Attending Unavailable DEANDRE LYONS Attending Unavailable DEANDRE LYONS Attending Unavailable DEANDRE LYONS Attending Unavailable ROXIE NOGUEIRA Attending Unavailable ROXIE NOGUEIRA Attending Unavailable Unavailable Primary Care Provider Unavailabl e Allergies Allergy Classification Reported Allergen(s) Allergy Type Date of Onset Reaction(s) Facility (4 sources) Acetaminophen / Codeine; Translations: [ACETAMINOPHEN-COD EINE] Drug Allergy 06-13-2021 [facility] Medications Current Medications Medication Drug Class(es) Dates Sig (Normalized) Sig (Original) cariprazine 3 mg oral capsule (3 sources) Atypical Antipsychotic Start: 09-16-2023 Vraylar 3 MG capsule 09/16/2023 Active escitalopram 10 mg oral tablet (3 sources) Serotonin Reuptake Inhibitor Start: 09-16-2023 take 1 tablet by mouth once daily escitalopram (Lexapro) 10 MG tablet Take 10 mg by mouth Daily 09/16/2023 Active estradiol 0.5 mg oral tablet (3 sources) Estrogen Start: 12-11-2023 take 1 tablet by mouth once daily estradiol (Estrace) 0.5 MG tablet Indications: Hormone imbalance Take 1 tablet (0.5 mg) by mouth Daily Take 1 tablet by mouth for 30 days 30 tablet 3 12/11/2023 Active hydrOXYzine pamoate 50 mg oral capsule (3 sources) Antihistamine Start: 09-16-2023 hydrOXYzine pamoate (Vistaril) 50 MG capsule Take 50 mg by mouth if needed 09/16/2023 Active ibuprofen 800 mg oral tablet (3 sources) Nonsteroidal Anti-inflammatory Drug Start: 04-24-2023 take 1 tablet by mouth every eight hours ibuprofen 800 MG tablet Take 800 mg by mouth every 8 (eight) hours 04/24/2023 Active meclizine hydrochloride 25 mg oral tablet (3 sources) Antiemetic Start: 06-26-2022 take 1 tablet by mouth in the morning meclizine (Antivert) 25 MG tablet Take 25 mg by mouth in the morning. 06/26/2022 Active nitroglycerin 0.4 mg sublingual tablet (3 sources) Nitrate Vasodilator Start: 07-04-2022 nitroglycerin (Nitrostat) 0.[address] 0.4 mg under the tongue every 5 (five) minutes if needed. 07/04/2022 Active Problems Active Problems Problem Classification Problem Date Documented Date Episodic/Chronic Genitourinary symptoms and ill-defined conditions (1 source) Personal history of urinary (tract) infections; Translations: [PERS HX URINARY TRACT INFECTIONS] Onset: 09-13-2021 Episodic Headache; including migraine (1 source) Headache; including migraine Onset: 05-20-2023 Other aftercare (2 sources) Postoperative visit; Translations: [Encounter for other specified surgical aftercare] 01-15-2024 Episodic Other upper respiratory infections (1 source) Streptococcal [...] Ag EIA Ql (Throat) Positive Abnormal NEG [facility] Comment on above: Performed By: #### 6 [id number] #### [facility] ([id number]) [address] [facility], [place] [address] SARS/FLU A+B/RSV by NAAT/Mol ecularon 05-20-2023 SARS/FLU [...] operators who are performing tests using either [employer] or [employer] systems and is limited to laboratories that [...] repeat. Fact Sheet for Healthcare Providers: https://www.fda.gov/m edia/760177/download Fact Sheet for Patients: https://www.fda.gov/m edia/131946/download Normal [facility] Comment on above: Performed By: #### C OVFLR #### [facility] ([id number]) [address] [place] [address], [place] [address] CULTURE URINEon 09-11-2021 CULTURE URINE Culture Observations : LIGHT GROWTH OF MIXED GENITAL JACQUELINE. NO POTENTIAL PATHOGENS SEEN. Normal [facility] Comment on above: Performed By: #### U RCX #### [facility] [address] [address] [address] Dg Sawant ER URINE PROFILEon 2 Bilirubin Ql (U) Negative Normal NEGATIVE [facility] Comment on above: Performed By: #### E RUR, PREGU, UMICRO #### [facility] [address] [address] [address] Dg Sawant Clarity (U) CLEAR Normal CLEAR [facility] Comment on above: Performed By: #### E RUR, PREGU, UMICRO #### [facility] [address] [address] [address] Dg Sawant Color (U) LT. YELLOW Normal YELLOW [facility] Comment on above: Performed By: #### E RUR, PREGU, UMICRO #### [facility] [address] [address] [address] Dg Sawant ERUAHD A micrscopic examination will be performed if indicated. Normal [facility] Comment on above: Performed By: #### E RUR, PREGU, UMICRO #### [facility] [address] [address] [address] Dg Sawant Glucose Ql (U) Negative Normal NEGATIVE [facility] Comment on above: Performed By: #### E RUR, PREGU, UMICRO #### [facility] [address] [address] [address] Dg Sawant Hemoglobin Ql (U) Negative Normal NEGATIVE [facility] Comment on above: Performed By: #### E RUR, PREGU, UMICRO #### [facility] [address] [address] [address] Dg Sawant Ketones Ql (U) Negative Normal NEGATIVE [facility] Comment on above: Performed By: #### E RUR, PREGU, UMICRO #### [facility] [address] [place] [address] Dr. Dg Sawant LEUKOCYTES TRACE Abnormal NEGATIVE [facility] Comment on above: Performed By: #### E RUR, PREGU, UMICRO #### [facility] [address] [address] [address] Dg Sawant Nitrite Ql (U) Negative Normal NEGATIVE [facility] Comment on above: Performed By: #### E RUR, PREGU, UMICRO #### [facility] [address] [place] [address] Dr. Dg Sawant pH (U) 6.0 [pH] Normal 5-9 [facility] Comment on above: Performed By: #### E RUR, PREGU, UMICRO #### [facility] [address] [address] [address] Dg Sawant SPEC GRAVITY 1.015 Normal 1.005-<=1.025 [facility] Comment on above: Performed By: #### E RUR, PREGU, UMICRO #### [facility] [address] [address] [address] Dg Sawant UA PROTEIN Negative Normal NEGATIVE/ TRACE [facility] Comment on above: Performed By: #### E RUR, PREGU, UMICRO #### [facility] [address] [address] [address] Dg Sawant UR MICRO IND INDICATED Normal [facility] Comment on above: Performed By: #### E RUR, PREGU, UMICRO #### [facility] [address] [place] [address] Dr. Dg Sawant Urobilinogen Qn (U) 0.2 {Susana'U}/dL Normal 0.2 - 1. 0 [facility] Comment on above: Performed By: #### E RUR, PREGU, UMICRO #### [facility] [address] [address] [address] Dg Sawant URon 09-11-2021 , QUAL Negative Normal NEGATIVE [facility] Comment on above: Performed By: #### E RUR, PREGU, UMICRO #### [facility] [address] [address] [address] Dg Sawant URINE MICROSCOPIC ONLYon BACTERIA TRACE Abnormal NONE SEEN [facility] Comment on above: Performed By: #### E RUR, PREGU, UMICRO #### [facility] [address] [address] [address] Dg Sawant Bacteria identified Cx Nom (U) INDICATED Normal [facility] Comment on above: Performed By: #### E RUR, PREGU, UMICRO #### [facility] [address] [address] [address] Dg Sawant CAST NONE SEEN Normal NONE SEEN [facility] Comment on above: Performed By: #### E RUR, PREGU, UMICRO #### [facility] [address] [address] [address] Dg Sawant Crystals LM Nom (Urine sed) NONE SEEN Normal NONE SEEN [facility] Comment on above: Performed By: #### E RUR, PREGU, UMICRO #### [facility] [address] [address] [address] Dg Sawant Epithelial cells LM Ql (Urine sed) RARE Normal NONE SEEN /RARE [facility] Comment on above: Performed By: #### E RUR, PREGU, UMICRO #### [facility] [address] [address] [address] Dg Sawant MUCOUS SMALL Abnormal NONE SEEN [facility] Comment on above: Performed By: #### E RUR, PREGU, UMICRO #### [facility] [address] [address] [address] Dg Sawant RBC 0-2 Normal 0-2 [facility] Comment on above: Performed By: #### E RUR, PREGU, UMICRO #### [facility] [address] [place], [place] [address] Dr. Dg Sawant WBC 0-2 Abnormal NONE SEEN [facility] Comment on above: Performed By: #### YANCY WARREN UMICRO #### [facility] [address] [place], [place] [address] Dr. Dg Sawant Vital Signs Date Time Vital Sign Value Performing Clinician Faci lity 01-15-2024 13:40-0400 Body mass index (BMI) [Ratio] 25.53 kg/m2 Roxie RAMOS Work Phone: [facility] 01-15-2024 13:40-0400 Body weight 73.94 kg Roxie RAMOS Work Phone: [facility] 01-15-2024 13:40-0400 Diastolic blood pressure 70 mm[Hg] Roxie RAMOS Work Phone: [facility] 01-15-2024 13:40-0400 Systolic blood pressure 114 mm[Hg] Roxie RAMOS Work Phone: [facility] Healthcare Encounters Encounter Date Encounter Type Care Provider Facility Start: 01-15-2024 End: 01-15-2024 Bamboo flowsheet Roxie RAMOS Work Phone: [facility] Start: 01-15-2024 End: 01-15-2024 Bamboo flowsheet Roxie RAMOS Work Phone: [facility] Start: 01-15-2024 End: 01-15-2024 Postop follow up visit related to original px Roxie RAMOS Work Phone: [facility] Comment on above: Postoperative visit; S/P hysterectomy Start: 01-15-2024 End: 01-15-2024 ambulatory ROXIE NOGUEIRA Not Available Start: 12-11-2023 End: 12-11-2023 ambulatory ROXIE NOGUEIRA Not Available Start: 12-04-2023 End: 12-04-2023 ambulatory [facility] Work Phone: Start: 12-04-2023 End: 12-04-2023 Departed Referred DO Deandre Eloy Work Phone: [facility] Start: 10-29-2023 End: 10-29-2023 ambulatory DEANDRE ELOY Not Available Start: 09-17-2023 End: 09-17-2023 ambulatory DEANDRE ELOY Not Available Start: 05-20-2023 End: 05-20-2023 Emergency department patient visit [facility] Start: 05-13-2023 End: 05-13-2023 ambulatory ROXIE NOGUEIRA Not Available Start: 04-01-2023 End: 04-01-2023 ambulatory DEANDRE ELOY Not Available Start: 09-11-2021 End: 09-11-[address] TRUJILLO [facility] [facility] Facility: Procedures Date Procedure Procedure Detail Performing Clinician H/O: hysterectomy S/P hysterectomy Roxie chaparro PA Work Phone: Plan of Treatment Date Care Activity Detail Author Start: 01-15-2024 End: 01-15-2024 Patient encounter procedure 01/15/2024 1:30 PM EDT Office Visit [facility] [address] [place] [id number] Roxie Nogueira PA [address] [place] [address] Arrived [facility] Comment on above: Arrived Payers Date Payer Category Payer Self-pay 2023 Medicaid [facility] MEDICAID [facility] MEDICAID [id number] 2023-Present [address] [place] [address] [id number] 2023 Medicaid [id number] 2023 Unknown YOSHI BELLE [facility] [id number] 2023-Present [phone] [address] [place] [address] [id number] 2022 Unknown [id number] 1979 Unknown [id number] 1979 Unknown [id number] 1979 Unknown [id number] 1979 Unknown [id number] 1979 Unknown [id number] 1979 Unknown [id number] 1979 Unknown [id number] 1979 Unknown [id number] 1959 Unknown [id number] Social History Date Type Detail Facility Tobacco smoking status [facility] Unknown if ever smoked [facility] Work Phone: Start: 1980 Sex Assigned At Female F [facility] Tobacco smoking status [facility] Tobacco smoking consumption unknown [facility] Start: 1980 Sex assigned at Not on file [facility] Gender identity Not on file [facility] History of Present illness Narrative 01-15-2024 RICHARD Edwards - 01/15/2024 1:30 PM EDT Note Date & Type Note Facility 01-15-2024 History of Presen t illness Narrative Reason for Appointment: Patient ID: Lucie Blum is a 43 y.o. female who presents for Post-op Visit (Pt present today for 6 week post operative hysterectomy. Pt had her hysterectomy on 12/04/2023.) Patient presents today for 6 week Hy Post Op Follow Up appointment. MEDICATIONS Current Outpatient Medications Medication Instructions escitalopram (LEXAPRO) 10 mg, Oral, Daily estradiol (ESTRACE) 0.5 mg, Oral, Daily, Take 1 tablet by mouth for 30 days hydrOXYzine pamoate (VISTARIL) 50 mg, Oral, As needed ibuprofen 800 mg, Oral, Every 8 hours meclizine (ANTIVERT) 25 mg, Oral, Daily nitroglycerin (NITROSTAT) 0.4 mg, Sublingual, Every 5 min PRN Vraylar 3 MG capsule ALLERGIES Allergies Allergen Reactions Acetaminophen-Codeine vomiting PROBLEMS Active Ambulatory Problems Diagnosis Date Noted No Active Ambulatory Problems Resolved Ambulatory Problems Diagnosis Date Noted No Resolved Ambulatory Problems No Additional Past Medical History HISTORY PAST MEDICAL HISTORY SOCIAL HISTORY No past medical history on file. Social History Tobacco Use Smoking status: Not on file Smokeless tobacco: Not on file Substance Use Topics Alcohol use: Not on file Drug use: Not on file FAMILY HISTORY No family history on file. SURGICAL HISTORY Past Surgical History: Procedure Laterality Date ENDOMETRIAL ABLATION 04/24/2023 ROBOTIC ASSISTED HYSTERECTOMY 12/04/2023 TUBAL LIGATION Bilateral 04/24/2023 REVIEW OF SYSTEMS Review of Systems: Review of Systems All other systems reviewed and are negative. OBJECTIVE Objective: Physical Exam Constitutional: Appearance: Normal appearance. Genitourinary: Perineal sutures intact. Right Adnexa: not tender and no mass present. Left Adnexa: not tender and no mass present. No cervical discharge. Breasts: Breasts are soft. Right: Normal. Left: Normal. HENT: Head: Normocephalic. Nose: Nose normal. Mouth/Throat: Mouth: Mucous membranes are moist. Cardiovascular: Rate and Rhythm: Normal rate. Pulmonary: Effort: Pulmonary effort is normal. Abdominal: General: Bowel sounds are normal. Palpations: Abdomen is soft. Musculoskeletal: General: Normal range of motion. Cervical back: Normal range of motion. Neurological: General: No focal deficit present. Mental Status: She is alert. Skin: General: Skin is warm and dry. Psychiatric: Mood and Affect: Mood normal. Vitals and nursing note reviewed. Exam conducted with a vocational coordinator present. Vitals: Estimated body mass index is 26.02 kg/m as calculated from the following: Height as of 12/11/23: 5' 7 . Weight as of 12/11/23: 166 lb 1.9 oz. BP: Patient's last menstrual period was 09/17/2023. ASSESSMENT & PLAN ICD-10-CM 1. Postoperative visit Z48.89 2. S/P hysterectomy Z90.710 Post Op Follow Up: Patient presents today for a 6 week postop check following a Da Alisa assisted Laparoscopic Hysterectomy. Surgery execution and pathology results were discussed in great detail with the patient. Pelvic exam was performed and vaginal cuff was noted as healing well. Patient has been instructed to sustain from sexual intercourse for one more week. All other restrictions have otherwise been lifted. Follow Up: Patient is to return in 1 year for annual exam unless needed otherwise. Pt present today for a 6 week post operative check for a hysterectomy. Pt has no complaints and doing well. A vaginal check was preformed by Roxie Nogueira PA-C. Pt is schedule an annual visit for next year. Documented by Shell Pugh MA on behalf of: RICHARD Edwards documented in this encounter [facility] Evaluation note Note Date & Type Note Facility Evaluation note No assessment information availa [facility] Work Phone: Evaluation note Note Date & Type Note Facility Evaluation note Diagnosis Postoperative visit S/P hysterectomy Acquired absence of both cervix and uterus documented in this encounter [facility] Summary Purpose Family History No Family History Records FoundNo Family History Records FoundNo Family History Records FoundNo Family History Records Found Advance Directives No Advanced Directives Records FoundNo Advanced Directives Records FoundNo Advanced Directives Records FoundNo Advanced Directives Records Found Additional Source Comments INFORMATION SOURCE (unrecogn ized section and content) DATE CREATED AUTHOR 09/13/2021 [facility] DATE CREATED AUTHOR AUTHOR'S ORGANIZ ATION 05/26/2023 [facility] DATE CREATED AUTHOR AUTHOR'S ORGANIZ ATION 12/07/2023 [facility] DATE CREATED AUTHOR AUTHOR'S ORGANIZ ATION 01/17/2024 [facility] [employer] Care Teams (unrecognized sec tion and content) Team Status: Inactive Member Role Status Dates Deandre Lyons DO Attending Provider Active Start : December 04, 2023 End: December 04, 2023 Goals (unrecognized section and content) Goals may be documented in a n alternate section Reason for Visit (unrecogniz ed section and content) Reason Comments Post-op Visit Pt present today for 6 week post operative hysterectomy. Pt had her hysterectomy on 12/04/2023. FOR RECORDS PERTAINING TO PATIENTS WHO ARE [...] BE BASED ON THE PRIMARY CLINICAL RECORDS. [facility] [employer] provides no warranty or guarantee of the accuracy or completeness of information in this document.
--- NOTE | 2024-02-06 12:50 | ED.GENADUL1 ---
HPI HPI - General Adult General Chief complaint: Back Pain/Injury Stated complaint: BACK PAIN Time Seen by Provider: 02/06/24 12:33 Source: patient Mode of arrival: walk-in Limitations: no limitations History of Present Illness HPI narrative: 43-year-old female presents for right flank pain. She has had it for a week and there was no injury. It has been continuous and she has not had hematuria or dysuria or frequency. No unusual activity or heavy lifting. She had a kidney stone but it was about 25 years ago. No in the abdomen or left flank. Related Data Home Medications ?Medication ?Instructions ?Recorded ?Confirmed nitroglycerin 0.4 mg sublingual 0.4 mg buccal Q5M PRN chest pain 04/11/23 02/06/24 tablet buspirone 5 mg tablet 5 mg PO BID 11/20/23 02/06/24 cariprazine 3 mg capsule (Vraylar) 1.5 mg PO QPM 11/20/23 02/06/24 escitalopram oxalate 10 mg tablet 15 mg PO DAILY 11/20/23 02/06/24 hydroxyzine pamoate 50 mg capsule 50 mg PO QPM PRN sleep 11/20/23 02/06/24 Previous Rx's ?Medication ?Instructions ?Recorded ibuprofen 800 mg tablet 800 mg PO Q8H PRN pain #20 tabs 02/06/24 methocarbamol 500 mg tablet 500 mg PO Q8H PRN pain #20 tabs 02/06/24 Allergies Allergy/AdvReac Type Severity Reaction Status Date / Time codeine AdvReac Vomiting Verified 11/20/23 10:10 Opioid HPI Opioid Management Most Recent Opioid Data: Last Pain Scale 5 12/05/23 08:03 12/05/23 Review of Systems ROS Narrative A ten point review of systems is negative except as noted above. [facility] Medical History (Updated 02/06/24 @ 15:37 by Clayton Brown MD) Dysmenorrhea ?N94.6 - Dysmenorrhea, unspecified (ICD-10) Dyspareunia Arthritis ?M19.90 - Unspecified osteoarthritis, unspecified site (ICD-10) Panic attacks ?F41.0 - Panic disorder [episodic paroxysmal anxiety] (ICD-10) Depression ?F32.A - Depression, unspecified (ICD-10) Anxiety ?F41.9 - Anxiety disorder, unspecified (ICD-10) COVID-19 ?U07.1 - COVID-19 (ICD-10) Migraine ?G43.909 - Migraine, unspecified, not intractable, without status migrainosus (ICD-10) Vertigo ?R42 - Dizziness and giddiness (ICD-10) Kidney stones ?N20.0 - Calculus of kidney (ICD-10) Request for sterilization ?Z30.2 - Encounter for sterilization (ICD-10) Abnormal uterine bleeding ?N93.9 - Abnormal uterine and vaginal bleeding, unspecified (ICD-10) Pelvic pain ?R10.2 - Pelvic and perineal pain (ICD-10) Menorrhagia ?N92.0 - Excessive and frequent menstruation with regular cycle (ICD-10) Heartburn ?R12 - Heartburn (ICD-10) Angina at rest ?I20.89 - Other forms of angina pectoris (ICD-10) Surgical History (Updated 11/20/23 @ 10:01 by Ayleen Saldana NP) H/O bilateral salpingectomy (04/24/23) ?Z90.79 - Acquired absence of other genital organ(s) (ICD-10) History of wisdom tooth extraction ?K08.409 - Partial loss of teeth, unspecified cause, unspecified class (ICD-10) History of tubal ligation ?Z98.51 - Tubal ligation status (ICD-10) Family History (Updated 04/11/23 @ 10:20 by Ayleen Saldana NP) Other Family history of diabetes mellitus Family history of heart disease Family history of hypertension Family history of stroke Social History (Updated 04/11/23 @ 10:16 by Ayleen Saldana NP) Within the past year, how often did you have a drink containing alcohol: 4 or more times a week Within the past year, how many standard drinks containing alcohol did you have on a typical day: 1 or 2 Total score: 0 Score interpretation: A score less than 3 is consistent with normal alcohol consumption. 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 General: The patient appears in no apparent distress. She is standing when I walk into the room. Skin: Warm, dry, no pallor noted. There is no rash noted. Head: Normocephalic, atraumatic Eye: Normal conjunctiva, no drainage Ears, Nose, Mouth, and Throat: oral mucosa is moist. Nares patent. Cardiovascular: Regular Rate and Rhythm Respiratory: Patient is in no distress, no accessory muscle use, lungs are clear to auscultation, no wheezing, rales or rhonchi Back: No bruise or rash or palpable tenderness GI: Soft and nontender Musculoskeletal: No joint swelling Neurological: Alert and oriented Psychiatric: Cooperative Constitutional Vital Signs, click to edit/add: Last Vital Signs Temp 98.2 F 02/06/24 12:36 Pulse 81 02/06/24 12:36 Resp 18 02/06/24 12:36 BP 114/93 H 02/06/24 12:36 Pulse Ox 99 02/06/24 12:36 O2 Del Method Room Air 02/06/24 12:36 Course Vital Signs Vital signs: Vital Signs Temperature 98.2 F 02/06/24 12:36 Pulse Rate 81 02/06/24 12:36 Respiratory Rate 18 02/06/24 12:36 Blood Pressure 114/93 H 02/06/24 12:36 Pulse Oximetry 99 02/06/24 12:36 Oxygen Delivery Method Room Air 02/06/24 12:36 Temperature 98.2 F 02/06/24 12:36 Pulse Rate 81 02/06/24 12:36 Respiratory Rate 18 02/06/24 12:36 Blood Pressure 114/93 H 02/06/24 12:36 Pulse Oximetry 99 02/06/24 12:36 Oxygen Delivery Method Room Air 02/06/24 12:36 Medical Decision Making MDM Narrative Medical decision making narrative: Urinalysis and CAT scan are negative. No evidence of UTI or pyelonephritis or kidney stone. She will be treated symptomatically. Treatment diagnosis and follow-up were discussed with the patient. Differential Diagnosis Differential Diagnosis: Kidney stone, UTI, pyelonephritis, muscle strain Lab Data Lab results reviewed: Yes I reviewed the patient's lab results Labs: Lab Results 02/06/24 Range/Units 13:50 Urine Color Lt. yellow (YELLOW) Urine Clarity Sl cloudy (CLEAR) Urine pH 5.5 (5.0-9.0) Ur Specific [place] 1.015 (1.005-1.025) Urine Protein Negative (NEG/TRACE) mg/dL Urine Glucose (UA) Negative (NEGATIVE) mg/dL Urine Ketones Negative (NEGATIVE) mg/dL Urine Occult Blood Negative (NEGATIVE) Urine Nitrite Negative (NEGATIVE) Urine Bilirubin Negative (NEGATIVE) Urine Urobilinogen 0.2 (0.2-1.0) EU/dL Ur Leukocyte Esterase Trace A (NEGATIVE) Urine RBC 0-2 (0-2) #/HPF Urine WBC 5-10 A (NONE SEEN) #/HPF Ur Squamous Epith Cells Moderate A (NONE/RARE) #/LPF Urine Crystals Seen A (None Seen) #/HPF Amorphous Sediment Rare Urine Bacteria Large A (NONE SEEN) #/HPF Urine Casts None seen (NONE SEEN) #/LPF Urine Mucus None seen (NONE SEEN) Ur Culture Indicated? Yes Imaging Data CT scan - abdomen: Radiologist's impression: ITS Impressions Abdomen/Pelvis CT 02/06/24 14:05 IMPRESSION: 1. No urinary tract calculi or obstructive uropathy. 2. No acute or suspicious findings to account for patient's symptoms. Electronically authenticated by: JORGE TAYLOR Date: 02/06/2024 15:10 Discharge Plan Discharge Chief Complaint: Back Pain/Injury Clinical Impression: Musculoskeletal pain Patient Disposition: Home, Self-Care Time of Disposition Decision: 15:37 Condition: Good Mode of Transportation: Private Vehicle Prescriptions / Home Meds: New methocarbamol 500 mg tablet 500 mg PO Q8H PRN (Reason: pain) Qty: 20 0RF ibuprofen 800 mg tablet 800 mg PO Q8H PRN (Reason: pain) Qty: 20 0RF No Action nitroglycerin 0.4 mg tablet, sublingual 0.4 mg buccal Q5M PRN (Reason: chest pain) buspirone 5 mg tablet 5 mg PO BID escitalopram oxalate 10 mg tablet 15 mg PO DAILY Vraylar 3 mg capsule 1.5 mg PO QPM hydroxyzine pamoate 50 mg capsule 50 mg PO QPM PRN (Reason: sleep) Print Language: Danish Instructions: Musculoskeletal Pain (ED) Referrals: [facility] [Primary Care Provider] - 1 week
[2024-02-06 13:57] LABS: Bilirubin Urine NEGATIVE (NEGATIVE); Blood Urine NEGATIVE (NEGATIVE); Clarity Urine SL CLOUDY (CLEAR); Color Urine LT. YELLOW (YELLOW); Glucose Urine UA NEGATIVE (NEGATIVE); Ketones Urine NEGATIVE (NEGATIVE); Leukocyte Esterase Urine TRACE (NEGATIVE); Nitrite Urine NEGATIVE (NEGATIVE); Protein Urine NEGATIVE (NEG/TRACE); Specific Gravity Urine 1.015 (1.005-1.025); Urobilinogen Urine 0.2 EU/dL (0.2-1.0); pH Urine 5.5 (5.0-9.0)
[2024-02-06 14:04] LABS: Amorphous Sediment Urine RARE; Bacteria Urine LARGE #/HPF (NONE SEEN); Cast Seen? NONE SEEN #/LPF (NONE SEEN); Crystals Seen? Seen #/HPF (None Seen); Mucus Urine NONE SEEN (NONE SEEN); RBC Urine 0-2 #/HPF (0-2); Squamous Epithelial Cell Urine MODERATE #/LPF (NONE/RARE); Urine Culture Indicated YES
--- NOTE | 2024-02-06 14:05 | CT_ITS ---
The [address] [address] Patient Name: LUCIE BLUM MRN: [id number] date: 1980 Sex: F Assigned Patient Location: ER Current Patient Location: ER Accession/Order Number: [id number] Exam Date: 02/06/2024 14:14 Report Date: 02/06/2024 15:10 At the request of: CARLY HARDWICK Procedure: CT abdomen pelvis wo con EXAMINATION: CT abdomen pelvis wo con HISTORY: flank pain, r/o stone ; right flank pain for one week COMPARISON: No relevant comparison available. TECHNIQUE: Axial, Coronal, and Sagittal images were obtained without and/or with IV contrast as indicated by examination type. Dose reduction techniques were achieved by using automated exposure control and/or adjustment of mA and/or kV according to patient size and/or use of iterative reconstruction technique. FINDINGS: LUNG BASES: No visible pulmonary or pleural disease. LIVER: No enlargement, atrophy, suspicious density, or significant focal lesion. BILIARY: No dilatation or calcification. PANCREAS: No lesion, fluid collection, or abnormal duct dilatation. SPLEEN: No enlargement or focal lesion. ADRENALS: No mass or enlargement. KIDNEYS: No mass, obstruction, or calcification. BOWEL/MESENTERY: Mild diverticulosis of distal colon without acute inflammatory changes. No visible mass, obstruction, or bowel wall thickening. Normal appendix. AORTA/VASCULAR: No aneurysm or dissection. RETROPERITONEUM: No mass or adenopathy. LYMPH NODES: No adenopathy. URINARY BLADDER: No visible focal wall thickening, lesion, or calculus. PELVIC ORGANS: Hysterectomy. There are 2 metallic clips within the anterior lower right abdomen which may be surgical clips, but the appearance is more suggestive of prior fallopian tube clips that may have dislodged. ABDOMINAL WALL: Tiny fat filled umbilical hernia without strangulation. Small fat filled supraumbilical midline ventral hernia/eventration. BONES: No bony lesion or fracture. OTHER: Negative. CT/CT abdomen pelvis wo con IMPRESSION: 1. No urinary tract calculi or obstructive uropathy. 2. No acute or suspicious findings to account for patient's symptoms. Electronically authenticated by: JORGE TAYLOR Date: 02/06/2024 15:10
[2024-02-06 15:46] VITALS: BP 118/68; PULSE 69; O2SAT 97
== END 2024-02-06 15:48 | disposition home or self-care (01) ==
PROVIDERS: Emergency Provider Emergency Medicine
DX: R10.9 Unspecified abdominal pain (principal); Z87.442 Personal history of urinary calculi; Z87.891 Personal history of nicotine dependence
CPT/HCPCS: 74176; 81001; 87086; 99284